=== PATIENT | female | born 1945 | race Caucasian/White ===

== ENCOUNTER → 2017-10-31 11:13 | Outpatient (CLI) | payer MEDICARE, BC, SELFPAY ==
--- NOTE | 2017-10-31 | DI.MG.S_ITS ---
BILATERAL DIGITAL SCREENING MAMMOGRAM 3D/2D WITH CAD: 10/31/2017 CLINICAL: Routine screening. Family history of breast cancer. Comparison is made to exams dated: 10/28/2016 mammogram, 10/27/2015 mammogram, and 10/21/2014 mammogram - [facility]. The tissue of both breasts is heterogeneously dense. This may lower the sensitivity of mammography. Current study was also evaluated with a Computer Aided Detection (CAD) system. There is architectural distortion in the left breast posterior depth lateral region seen on the craniocaudal view only. No other significant masses, calcifications, or other findings are seen in either breast. IMPRESSION: INCOMPLETE: NEEDS ADDITIONAL IMAGING EVALUATION The architectural distortion in the left breast is indeterminate. Additional views with possible ultrasound are recommended. This exam was interpreted at Station ID: [id number]. NOTE: For mammograms, a report in lay terms will be sent to the patient. Approximately 15% of breast malignancies will not be visualized mammographically. In the management of a palpable breast mass, a negative mammogram must not discourage biopsy of a clinically suspicious lesion. Electronically Signed By: Paul johnston/biju:11/02/2017 08:06:50 letter sent: Additional Imaging Needed ACR BI-RADS Category 0: Incomplete 3340F
== END ==
PROVIDERS: Family Provider Internal Medicine; PCP Internal Medicine; Visit Provider Internal Medicine
DX: Z12.31 Encounter for screening mammogram for malignant neoplasm of breast (principal); Z80.3 Family history of malignant neoplasm of breast
CPT/HCPCS: 77063; 77067

== ENCOUNTER → 2017-11-08 13:37 | Outpatient (CLI) | payer MEDICARE, BC, SELFPAY ==
--- NOTE | 2017-11-08 | DI.MG.S_ITS ---
UNILATERAL LEFT DIGITAL DIAGNOSTIC MAMMOGRAM 3D/2D WITH ADDITIONAL VIEWS: 11/08/2017 CLINICAL: Additional evaluation requested from prior study. Comparison is made to exams dated: 10/31/2017 mammogram, 10/28/2016 mammogram, and 10/27/2015 mammogram - [facility]. The tissue of the left breast is heterogeneously dense. This may lower the sensitivity of mammography. The architectural distortion in the left breast posterior depth lateral region seen on the craniocaudal view only is not seen in additional views. No other significant masses or calcifications are seen in the breast. IMPRESSION: BENIGN There is no mammographic evidence of malignancy. A 1 year screening mammogram is recommended. This exam was interpreted at Station ID: [id number]. NOTE: For mammograms, a report in lay terms will be sent to the patient. Approximately 15% of breast malignancies will not be visualized mammographically. In the management of a palpable breast mass, a negative mammogram must not discourage biopsy of a clinically suspicious lesion. Electronically Signed By: Sienna antonio/:11/08/2017 14:20:15 letter sent: Normal Exam ACR BI-RADS Category 2: Benign Finding(s) 3342F
== END ==
PROVIDERS: Family Provider Internal Medicine; PCP Internal Medicine; Visit Provider Internal Medicine
DX: R92.8 Other abnormal and inconclusive findings on diagnostic imaging of breast (principal)
CPT/HCPCS: 77065; G0279

== ENCOUNTER → 2017-12-20 10:08 | Outpatient (CLI) | payer MEDICARE, BC, SELFPAY ==
[2017-12-20 11:49] LABS: Erythrocyte Sedimentation Rate 17 MM/HR (0-20)
[2017-12-20 12:05] LABS: C-Reactive Protein Quant 2.1 mg/dL (<1.0)
== END ==
PROVIDERS: PCP Internal Medicine; Visit Provider Internal Medicine
DX: M35.3 Polymyalgia rheumatica (principal)
CPT/HCPCS: 36415; 85651; 86140

== ENCOUNTER → 2018-02-05 09:51 | Outpatient (CLI) | payer MEDICARE, BC, SELFPAY ==
[2018-02-05 10:18] LABS: Add Manual Diff / Slide Review NO; Basophils Percent Auto 0.7 % (0-2); Eosinophils Percent Auto 0.8 % (2-4); Hematocrit 40.1 % (36-46); Hemoglobin 13.7 g/dL (12.0-16.0); Lymphocytes Percent Auto 23.7 % (25-40); Mean Corpuscular HGB Conc 34.3 % (30-36); Mean Corpuscular Hemoglobin 32.5 PG (26-34); Neutrophils Absolute Auto 4400 /uL (3000-5900); Neutrophils Percent Auto 68.8 % (50-75); Platelet Count 277 X10^3/uL (150-400); Red Blood Cell Count 4.22 X10^6/uL (4.0-5.2); Red Cell Distribution Width 14.7 % (11.6-14.8); White Blood Cell Count 6.3 X10^3/uL (4.5-11.0)
[2018-02-05 11:05] LABS: Erythrocyte Sedimentation Rate 1 MM/HR (0-20)
[2018-02-05 12:16] LABS: Alanine Aminotransferase 27 IU/L (9-52); Albumin 4.6 g/dL (3.5-5.0); Albumin Globulin Ratio 1.8 (1.0-2.8); Alkaline Phosphatase 64 U/L (38-126); Aspartate Aminotransferase 30 IU/L (14-36); BUN Creatinine Ratio 25.7 (6-22); Bilirubin Total 0.6 mg/dL (0.2-1.3); Blood Urea Nitrogen 18 mg/dL (7-17); Calcium 10.1 mg/dL (8.4-10.2); Carbon Dioxide 28 mmol/L (22-32); Chloride 103 mmol/L (98-107); Estimated Glomerular Filt Rate > 60.0 mL/min (>60); Globulin 2.5 g/dL (1.7-4.1); Glucose 93 mg/dL (80-110); HEMOLYSIS < 15 (0-50); Potassium 4.8 mmol/L (3.4-5.1); Sodium 140 mmol/L (137-145); Total Protein 7.1 g/dL (6.3-8.2)
== END ==
PROVIDERS: Family Provider Internal Medicine; PCP Internal Medicine; Visit Provider Internal Medicine
DX: M35.3 Polymyalgia rheumatica (principal); M81.0 Age-related osteoporosis without current pathological fracture
CPT/HCPCS: 36415; 80053; 85025; 85651

== ENCOUNTER → 2018-11-06 09:18 | Outpatient (CLI) | payer MEDICARE, BC, SELFPAY ==
--- NOTE | 2018-11-06 | DI.MG.S_ITS ---
BILATERAL DIGITAL SCREENING MAMMOGRAM 3D/2D WITH CAD: 11/06/2018 CLINICAL: Routine screening. Family history of breast cancer. Comparison is made to exams dated: 10/31/2017 mammogram, 10/28/2016 mammogram, and 10/27/2015 mammogram - [facility]. The tissue of both breasts is heterogeneously dense. This may lower the sensitivity of mammography. Current study was also evaluated with a Computer Aided Detection (CAD) system. No significant masses, calcifications, or other findings are seen in either breast. There has been no significant interval change. IMPRESSION: NEGATIVE There is no mammographic evidence of malignancy. A 1 year screening mammogram is recommended. This exam was interpreted at Station ID: [id number]. NOTE: For mammograms, a report in lay terms will be sent to the patient. Approximately 15% of breast malignancies will not be visualized mammographically. In the management of a palpable breast mass, a negative mammogram must not discourage biopsy of a clinically suspicious lesion. Electronically Signed By: Sienna antonio/biju:11/06/2018 10:20:47 letter sent: Normal Exam ACR BI-RADS Category 1: Negative 3341F
== END ==
PROVIDERS: PCP Internal Medicine; Visit Provider Internal Medicine
DX: Z12.31 Encounter for screening mammogram for malignant neoplasm of breast (principal); Z80.3 Family history of malignant neoplasm of breast
CPT/HCPCS: 77063; 77067

== ENCOUNTER → 2019-01-31 08:37 | Outpatient (CLI) | payer MEDICARE, BC, SELFPAY ==
[2019-01-31 10:02] LABS: Erythrocyte Sedimentation Rate 10 MM/HR (0-20)
== END ==
PROVIDERS: PCP Internal Medicine; Visit Provider Internal Medicine
DX: M35.3 Polymyalgia rheumatica (principal)
CPT/HCPCS: 36415; 85651

== ENCOUNTER → 2019-05-10 09:19 | Outpatient (CLI) | payer MEDICARE, BC, SELFPAY | PROVIDERS: PCP Internal Medicine; Visit Provider Internal Medicine | DX: M85.852 Other specified disorders of bone density and structure, left thigh (principal); Z78.0 Asymptomatic menopausal state; Z82.62 Family history of osteoporosis | CPT/HCPCS: 77080 ==

== ENCOUNTER → 2019-06-25 09:28 | Outpatient (CLI) | payer MEDICARE, BC, SELFPAY ==
[2019-06-25 10:52] LABS: Erythrocyte Sedimentation Rate 14 MM/HR (0-20)
== END ==
PROVIDERS: PCP Internal Medicine; Referring Provider Internal Medicine; Visit Provider Internal Medicine
DX: M81.0 Age-related osteoporosis without current pathological fracture (principal); M35.3 Polymyalgia rheumatica
CPT/HCPCS: 36415; 85651

== ENCOUNTER → 2019-11-08 09:53 | Outpatient (CLI) | payer MEDICARE, BC, SELFPAY ==
--- NOTE | 2019-11-08 | DI.MG.S_ITS ---
BILATERAL DIGITAL SCREENING MAMMOGRAM 3D/2D WITH CAD: 11/08/2019 CLINICAL: Routine screening. Family history of breast cancer. Comparison is made to exams dated: 11/06/2018 mammogram, 10/31/2017 mammogram, and 10/28/2016 mammogram - [facility]. The tissue of both breasts is heterogeneously dense. This may lower the sensitivity of mammography. Current study was also evaluated with a Computer Aided Detection (CAD) system. There is an irregular equal density asymmetry with an indistinct margin in the right breast middle depth central to the nipple seen on the mediolateral oblique view only. There is possible architectural distortion associated with the asymmetry. No other significant masses, calcifications, or other findings are seen in either breast. IMPRESSION: INCOMPLETE: NEEDS ADDITIONAL IMAGING EVALUATION The irregular equal density asymmetry in the right breast is indeterminate. Mediolateral and spot compression views as well as additional views with possible ultrasound are recommended. This exam was interpreted at Station ID: [id number]. NOTE: For mammograms, a report in lay terms will be sent to the patient. Approximately 15% of breast malignancies will not be visualized mammographically. In the management of a palpable breast mass, a negative mammogram must not discourage biopsy of a clinically suspicious lesion. Electronically Signed By: Jong stewart/:11/08/2019 11:51:29 letter sent: Additional Imaging Needed ACR BI-RADS Category 0: Incomplete 3340F
== END ==
PROVIDERS: PCP Internal Medicine; Referring Provider Internal Medicine; Visit Provider Internal Medicine
DX: Z12.31 Encounter for screening mammogram for malignant neoplasm of breast (principal); Z80.3 Family history of malignant neoplasm of breast
CPT/HCPCS: 77063; 77067

== ENCOUNTER → 2019-12-04 09:06 | Outpatient (CLI) | payer MEDICARE, BC, SELFPAY ==
--- NOTE | 2019-12-04 | DI.MG.S_ITS ---
UNILATERAL RIGHT DIGITAL DIAGNOSTIC MAMMOGRAM 3D/2D WITH ADDITIONAL VIEWS: 12/04/2019 CLINICAL: Additional evaluation requested from prior study. Comparison is made to exams dated: 11/08/2019 mammogram, 11/06/2018 mammogram, and 11/08/2017 mammogram - [facility]. The tissue of right breast is heterogeneously dense. This may lower the sensitivity of mammography. The previously seen asymmetry in the right breast is no longer visualized, presumably secondary to superimposed fibroglandular breast tissue on the prior exam. No significant masses, calcifications, or other findings are seen in the breast. IMPRESSION: NEGATIVE There is no mammographic evidence of malignancy. A 1 year screening mammogram is recommended. This exam was interpreted at Station ID: [id number]. NOTE: For mammograms, a report in lay terms will be sent to the patient. Approximately 15% of breast malignancies will not be visualized mammographically. In the management of a palpable breast mass, a negative mammogram must not discourage biopsy of a clinically suspicious lesion. Electronically Signed By: Herminio barroso/biju:12/04/2019 09:52:08 letter sent: Normal Exam ACR BI-RADS Category 1: Negative 3341F
== END ==
PROVIDERS: PCP Internal Medicine; Referring Provider Internal Medicine; Visit Provider Internal Medicine
DX: R92.8 Other abnormal and inconclusive findings on diagnostic imaging of breast (principal)
CPT/HCPCS: 77065; G0279

== ENCOUNTER → 2020-02-18 09:17 | Outpatient (CLI) | payer MEDICARE, BC, SELFPAY ==
[2020-02-18 16:45] LABS: Erythrocyte Sedimentation Rate 13 MM/HR (0-20)
== END ==
PROVIDERS: PCP Internal Medicine; Referring Provider Internal Medicine; Visit Provider Internal Medicine
DX: M35.3 Polymyalgia rheumatica (principal); M81.0 Age-related osteoporosis without current pathological fracture
CPT/HCPCS: 36415; 85651

== ENCOUNTER → 2020-11-10 09:34 | Outpatient (CLI) | payer MEDICARE, BC, SELFPAY ==
--- NOTE | 2020-11-10 | DI.MG.S_ITS ---
BILATERAL DIGITAL SCREENING MAMMOGRAM 3D/2D WITH CAD: 11/10/2020 CLINICAL: Family history of breast cancer. Routine screening. Comparison is made to exams dated: 12/04/2019 mammogram, 11/08/2019 mammogram, 11/06/2018 mammogram, 10/31/2017 mammogram, and 10/28/2016 mammogram - [facility]. The tissue of both breasts is heterogeneously dense. This may lower the sensitivity of mammography. Current study was also evaluated with a Computer Aided Detection (CAD) system. No significant masses, calcifications, or other findings are seen in either breast. There has been no significant interval change. IMPRESSION: NEGATIVE There is no mammographic evidence of malignancy. A 1 year screening mammogram is recommended. This exam was interpreted at Station ID: [id number]. NOTE: For mammograms, a report in lay terms will be sent to the patient. Approximately 15% of breast malignancies will not be visualized mammographically. In the management of a palpable breast mass, a negative mammogram must not discourage biopsy of a clinically suspicious lesion. Electronically Signed By: Maxi vasquez/biju:11/10/2020 11:39:46 letter sent: Normal Exam ACR BI-RADS Category 1: Negative 3341F
== END ==
PROVIDERS: PCP Internal Medicine; Referring Provider Internal Medicine; Visit Provider Internal Medicine
DX: Z12.31 Encounter for screening mammogram for malignant neoplasm of breast (principal); Z80.3 Family history of malignant neoplasm of breast
CPT/HCPCS: 77063; 77067

== ENCOUNTER → 2021-05-11 09:04 | Outpatient (CLI) | payer MEDICARE, BC, SELFPAY | PROVIDERS: PCP Internal Medicine; Referring Provider Internal Medicine; Visit Provider Internal Medicine | DX: M85.88 Other specified disorders of bone density and structure, other site (principal); Z78.0 Asymptomatic menopausal state; Z82.62 Family history of osteoporosis | CPT/HCPCS: 77080 ==

== ENCOUNTER → 2021-05-20 07:05 | Outpatient (CLI) | payer MEDICARE, BC, SELFPAY ==
[2021-05-20 08:52] LABS: Alanine Aminotransferase 21 IU/L (<35); Albumin 4.1 g/dL (3.5-5.0); Albumin Globulin Ratio 1.7 (1.0-2.8); Alkaline Phosphatase 66 U/L (38-126); Aspartate Aminotransferase 34 IU/L (14-36); BUN Creatinine Ratio 32.9 (6-22); Bilirubin Total 0.6 mg/dL (0.2-1.3); Blood Urea Nitrogen 24 mg/dL (7-17); Carbon Dioxide 30 mmol/L (22-32); Chloride 104 mmol/L (98-107); Cholesterol 246 mg/dL (140-199); Estimated Glomerular Filt Rate > 60.0 mL/min (>60); Globulin 2.4 g/dL (1.7-4.1); Glucose 92 mg/dL (80-110); HEMOLYSIS < 15 (0-50); Potassium 4.2 mmol/L (3.4-5.1); Sodium 139 mmol/L (137-145); Total Protein 6.5 g/dL (6.3-8.2); Triglycerides 74 mg/dL (35-150)
[2021-05-20 09:02] LABS: HDL Cholesterol 130 mg/dL (40-60); LDL Cholesterol Calculated 101 mg/dL (<100)
[2021-05-20 15:54] LABS: Hep C Virus Ab w/Reflex Quant NEGATIVE s/c (NEGATIVE)
== END ==
PROVIDERS: PCP Internal Medicine; Referring Provider Internal Medicine; Visit Provider Internal Medicine
DX: E78.5 Hyperlipidemia, unspecified (principal); Z11.59 Encounter for screening for other viral diseases
CPT/HCPCS: 36415; 80053; 80061; 86803

== ENCOUNTER 2021-06-14 11:41 | Emergency (ER) | payer MEDICARE, BC, SELFPAY ==
[2021-06-14 11:45] VITALS: BP 160/78; PULSE 94; RESP 20; TEMP 36.2; O2SAT 97; BMI 20.7
--- NOTE | 2021-06-14 11:52 | DI.RAD.S_ITS ---
PROCEDURE: XR CHEST 1V INDICATIONS: chest pain TECHNIQUE: One view of the chest was acquired. COMPARISON: [facility], , CHEST 2 VIEW, 02/27/2012, 14:36. FINDINGS: Surgical changes and devices: None. Lungs and pleura: Lungs are clear. No pleural effusions or pneumothorax. Mediastinum: Mediastinal contours appear normal. Heart size is mildly enlarged. Bones and chest wall: No suspicious bony lesions. Overlying soft tissues appear unremarkable. IMPRESSION: No acute cardiopulmonary pathology. Dictated by: Eulogio Nunez M.D. on 06/14/2021 at 12:48 Approved by: Eulogio Nunez M.D. on 06/14/2021 at 12:48
[2021-06-14 12:59] LABS: Add Manual Diff / Slide Review NO; Basophils Absolute Auto 100 /uL (0-100); Basophils Percent Auto 1.2 % (0-2); Eosinophils Absolute Auto 100 /uL (0-450); Eosinophils Percent Auto 1.7 % (2-4); Hematocrit 37.2 % (36-46); Hemoglobin 12.9 g/dL (12.0-16.0); Lymphocytes Absolute Auto 1400 /uL (1100-4500); Lymphocytes Percent Auto 28.1 % (25-40); Mean Corpuscular HGB Conc 34.6 % (30-36); Mean Corpuscular Volume 92.4 fL (80-100); Monocytes Absolute Auto 400 /uL (0-900); Monocytes Percent Auto 8.1 % (3-14); Neutrophils Absolute Auto 3100 /uL (1500-7000); Neutrophils Percent Auto 60.9 % (50-75); Platelet Count 221 X10^3/uL (150-400); Red Blood Cell Count 4.03 X10^6/uL (4.0-5.2); Red Cell Distribution Width 13.6 % (11.6-14.8); White Blood Cell Count 5.1 X10^3/uL (4.5-11.0)
[2021-06-14 13:05] LABS: Alanine Aminotransferase 20 IU/L (<35); Albumin 4.5 g/dL (3.5-5.0); Albumin Globulin Ratio 1.7 (1.0-2.8); Alkaline Phosphatase 72 U/L (38-126); Aspartate Aminotransferase 34 IU/L (14-36); BUN Creatinine Ratio 24.1 (6-22); Bilirubin Total 0.6 mg/dL (0.2-1.3); Blood Urea Nitrogen 19 mg/dL (7-17); Carbon Dioxide 27 mmol/L (22-32); Chloride 107 mmol/L (98-107); Creatine Kinase 137 U/L (30-135); Estimated Glomerular Filt Rate > 60.0 mL/min (>60); Globulin 2.7 g/dL (1.7-4.1); Glucose 96 mg/dL (80-110); HEMOLYSIS < 15 (0-50); Lipase 214 U/L (23-300); Potassium 3.6 mmol/L (3.4-5.1); Sodium 141 mmol/L (137-145); Total Protein 7.2 g/dL (6.3-8.2)
[2021-06-14 13:16] LABS: Troponin I < 0.012 ng/mL (0.01-0.034)
[2021-06-14 13:20] LABS: Creatine Kinase MB 2.73 ng/mL (<2.37)
[2021-06-14 15:17] VITALS: PULSE 75; RESP 22; O2SAT 97
[2021-06-14 15:18] VITALS: BP 177/90; PULSE 79; RESP 19; O2SAT 97
[2021-06-14 15:30] VITALS: BP 144/69; PULSE 62; RESP 26; O2SAT 96
[2021-06-14 15:56] VITALS: BP 147/71; PULSE 65; O2SAT 84
--- NOTE | 2021-06-14 15:58 | ED_ITS ---
HPI - Chest Pain General Chief Complaint: Chest Pain Stated Complaint: Chest pains Time Seen by Provider: 06/14/21 15:58 Source: patient Mode of arrival: Ambulatory Limitations: no limitations History of Present Illness HPI narrative: Patient is a 76-year-old female who presents with chest discomfort. She has had intermittent chest discomfort is ongoing for past couple of weeks. However she says she only notices at night. Throughout the days she is able to do everything that she needs. She denies any shortness of breath nausea or vomiting. She has no palpitations. She thinks it is related to stress. She is here at the request of her primary care physician who would like more of a work up. Related Data Home Medications Medication Instructions Recorded Confirmed furosemide 20 mg tablet 20 mg PO QDAY #0 08/15/17 Allergies Allergy/AdvReac Type Severity Reaction Status Date / Time No Known Drug Allergies Allergy Verified 06/14/21 11:52 Review of Systems Review of Systems Narrative: GENERAL: Denies chills, fatigue, malaise, fever, sweats, travel HEENT: Denies sinus pain, ear pain, sore throat, difficulty swallowing, neck pain RESPIRATORY: Denies dyspnea, cough, wheezing, hemoptysis, sputum. CARDIOVASCULAR: See HPI GASTROINTESTINAL: Denies nausea, vomiting, abdominal pain, diarrhea, constipatio n, melena. : Denies dysuria, frequency, incontinence, hematuria, urinary retention, flank pain. MUSCULOSKELETAL: Denies weakness, joint pain, or bony pain SKIN: No rash, no erythema, no pruritus NEUROLOGIC: Denies weakness, dizziness, headache, numbness, change in speech, confusion PSYCHIATRIC: No concerning psychosocial issues. 12 point review of systems is negative except for those stated above and HPI Patient History Social History Smoking Status: Never smoker Smoking Status: Never smoker Substance Use Type: does not use Exam Initial Vital Signs Initial Vital Signs: Vital Signs Temperature 97.1 F L 06/14/21 11:45 Pulse Rate 94 H 06/14/21 11:45 Respiratory Rate 20 06/14/21 11:45 Blood Pressure 160/78 H 06/14/21 11:45 Pulse Oximetry 97 06/14/21 11:45 GENERAL: Alert 76-year-old female slightly anxious slightly anxious and in no acute distress. HEENT: Head atraumatic,EOMI, pupils reactive, face symmetric, moist mucous membranes CARDIOVASCULAR: Regular rate and rhythm without murmurs, rubs or gallops. RESPIRATORY: Breath sounds equal bilaterally, no wheezes rales or rhonchi. ABDOMEN: Soft, nontender. Normoactive bowel sounds all 4 quadrants. No guarding or rebound. EXTREMITIES: Normal range of motion, no clubbing or edema. Neurovascularly intact NEUROLOGICAL: Alert and oriented x4.Normal gait and speech. SKIN: Warm, dry, no laceration, no petechiae, no rashes or lesions. Course Orders Ordered: ED Orders 06/14/21 11:52 XR chest 1V Stat EKG-12 Lead Stat 06/14/21 12:20 Complete Blood Count AUTO DIFF Stat Comprehensive Metabolic Panel Stat Lipase Stat Magnesium Stat Troponin & CK Cardiac Panel Stat 06/14/21 15:20 Trop I [Troponin I] Stat 06/14/21 15:26 EKG-12 Lead Stat Vital Signs Vital signs: Vital Signs - 8 hr 06/14/21 15:17 06/14/21 15:18 06/14/21 15:30 Pulse Rate 75 79 62 Respiratory Rate 22 19 26 H Blood Pressure 177/90 H 144/69 H Pulse Oximetry 97 97 96 06/14/21 15:56 06/14/21 16:00 Pulse Rate 65 69 Respiratory Rate 44 H Blood Pressure 147/71 H Pulse Oximetry 84 L 79 L MDM - Chest Pain Lab Data Result diagrams: 06/14/21 12:20 06/14/21 12:20 Labs: Lab Results 06/14/21 06/14/21 06/14/21 Range/Units 12:20 12:20 15:20 WBC 5.1 (4.5-11.0) X10^3/uL RBC 4.03 (4.0-5.2) X10^6/uL Hgb 12.9 (12.0-16.0) g/dL Hct 37.2 (36-46) % MCV 92.4 (80-100) fL MCH 32.0 (26-34) PG MCHC 34.6 (30-36) % RDW 13.6 (11.6-14.8) % Plt Count 221 (150-400) X10^3/uL Neut % (Auto) 60.9 (50-75) % Lymph % (Auto) 28.1 (25-40) % Bacon % (Auto) 8.1 (3-14) % Eos % (Auto) 1.7 L (2-4) % Baso % (Auto) 1.2 (0-2) % Neut # (Auto) 3100 (8227-4657) /uL Lymph # (Auto) 1400 (6590-5884) /uL Bacon # (Auto) 400 (0-900) /uL Eos # (Auto) 100 (0-450) /uL Baso # (Auto) 100 (0-100) /uL Sodium 141 (137-145) mmol/L Potassium 3.6 (3.4-5.1) mmol/L Chloride 107 (98-107) mmol/L Carbon Dioxide 27 (22-32) mmol/L BUN 19 H (7-17) mg/dL Creatinine 0.79 (0.52-1.04) mg/dL Estimated GFR > 60.0 (>60) mL/min BUN/Creatinine Ratio 24.1 H (6-22) Glucose 96 (80-110) mg/dL Calcium 10.0 (8.4-10.2) mg/dL Magnesium 2.0 (1.6-2.3) mg/dL Total Bilirubin 0.6 (0.2-1.3) mg/dL AST 34 (14-36) IU/L ALT 20 (<35) IU/L Alkaline Phosphatase 72 (38-126) U/L Total Creatine Kinase 137 H (30-135) U/L CK-MB (CK-2) 2.73 H (<2.37) ng/mL CK-MB (CK-2) Rel Index 2.0 (1.5-5.0) % Troponin I < 0.012 0.020 (0.01-0.034) ng/mL Total Protein 7.2 (6.3-8.2) g/dL Albumin 4.5 (3.5-5.0) g/dL Globulin 2.7 (1.7-4.1) g/dL Albumin/Globulin Ratio 1.7 (1.0-2.8) Lipase 214 (23-300) U/L Imaging Data Chest x-ray: Radiologist's Impression: PROCEDURE:? XR CHEST 1V ? INDICATIONS:? chest pain ? TECHNIQUE:? One view of the chest was acquired.? ? COMPARISON:? [facility], , CHEST 2 VIEW, 02/27/2012, 14:36. ? FINDINGS:? ? Surgical changes and devices:? None.? ? Lungs and pleura:? Lungs are clear.? No pleural effusions or pneumothorax.? ? Mediastinum:? Mediastinal contours appear normal.? Heart size is mildly enlarged.? ? Bones and chest wall:? No suspicious bony lesions.? Overlying soft tissues appear unremarkable.? ? IMPRESSION:? No acute cardiopulmonary pathology. ? ? Dictated by: Eulogio Nunez M.D. on 06/14/2021 at 12:48? ECG Data Interpretation: Normal sinus rhythm rate 71 VA interval 170 QRS [address] changes no T- wave inversion Normal sinus rhythm rate 60 p.r. interval [address] changes MDM Narrative Medical decision making narrative: The patient overall is quite anxious she is ready to go home. She was sent here by her primary care provider for rule out. Her chest pain does not sound cardiac in nature but still may need outpatient stress test. She has a negative workup here in the emergency department. She only has symptoms when she lays down at night. At this time I feel it is appropriate for her to follow up with her Discharge Plan Departure Patient Disposition: Home Clinical Impression: Atypical chest pain Instructions: DI for Atypical Chest Pain Activity Restrictions/Additional Instructions: *You have been diagnosed with atypical chest pain *What to do: At this time rib workup is negative. He when your primary may decide that you need an outpatient stress test however not indicated to stay in hospital at this time. *Continue to take medications as directed *Follow up with your primary care provider in 2-3 days or call [phone] *Return to ER if you should have increasing chest pain change in chest pain, palpitation shortness of breath or any new, worsening or concerning symptoms Prescriptions: No Action furosemide 20 MG tablet 20 mg PO QDAY Qty: 0 0RF Referrals: Usha Wright MD [Primary Care Provider] -
[2021-06-14 16:00] VITALS: PULSE 69; RESP 44; O2SAT 79
== END 2021-06-14 16:29 | disposition home or self-care (01) ==
PROVIDERS: Emergency Provider Emergency Medicine; PCP Internal Medicine
DX: R07.89 Other chest pain (principal)
CPT/HCPCS: 36415; 71045; 80053; 82550; 82553; 83690; 83735; 84484; 85025; 93005; 93010; 99284

== ENCOUNTER → 2021-11-16 08:26 | Outpatient (CLI) | payer MEDICARE, BC, SELFPAY ==
--- NOTE | 2021-11-16 | DI.MG.S_ITS ---
BILATERAL DIGITAL SCREENING MAMMOGRAM 3D/2D WITH CAD: 11/16/2021 CLINICAL: Routine screening. Family history of breast cancer. Comparison is made to exams dated: 11/10/2020 mammogram, 11/08/2019 mammogram, 11/06/2018 mammogram, 10/31/2017 mammogram, and 10/28/2016 mammogram - [facility]. The tissue of both breasts is heterogeneously dense. This may lower the sensitivity of mammography. Current study was also evaluated with a Computer Aided Detection (CAD) system. No significant masses, calcifications, or other findings are seen in either breast. There has been no significant interval change. IMPRESSION: NEGATIVE There is no mammographic evidence of malignancy. A 1 year screening mammogram is recommended. Based on the Tyrer Cuzick model (a risk assessment model) the patient's lifetime risk is 4.9% and her 10 year risk is 0.0%. According to the ACR, ACS, and NCCN guidelines, an annual breast MRI exam along with mammogram is recommended if the patient's lifetime risk is 20% or greater. This exam was interpreted at Station ID: [id number]. NOTE: For mammograms, a report in lay terms will be sent to the patient. Approximately 15% of breast malignancies will not be visualized mammographically. In the management of a palpable breast mass, a negative mammogram must not discourage biopsy of a clinically suspicious lesion. Electronically Signed By: Maxi vasquez/biju:11/16/2021 09:10:58 letter sent: Normal Exam ACR BI-RADS Category 1: Negative 3341F
== END ==
PROVIDERS: PCP Internal Medicine; Referring Provider Internal Medicine; Visit Provider Internal Medicine
DX: Z12.31 Encounter for screening mammogram for malignant neoplasm of breast (principal); Z80.3 Family history of malignant neoplasm of breast
CPT/HCPCS: 77063; 77067

== ENCOUNTER → 2022-03-10 07:36 | Outpatient (CLI) | payer MEDICARE, BC, SELFPAY ==
[2022-03-10 10:57] LABS: Alanine Aminotransferase 23 IU/L (<35); Albumin 4.3 g/dL (3.5-5.0); Albumin Globulin Ratio 1.8 (1.0-2.8); Alkaline Phosphatase 74 U/L (38-126); Aspartate Aminotransferase 31 IU/L (14-36); BUN Creatinine Ratio 27.5 (6-22); Bilirubin Total 0.7 mg/dL (0.2-1.3); Blood Urea Nitrogen 19 mg/dL (7-17); Calcium 9.7 mg/dL (8.4-10.2); Carbon Dioxide 26 mmol/L (22-32); Chloride 103 mmol/L (98-107); Cholesterol 169 mg/dL (140-199); Estimated Glomerular Filt Rate > 60 mL/min (>60); Globulin 2.4 g/dL (1.7-4.1); Glucose 76 mg/dL (80-110); HDL Cholesterol 107 mg/dL (40-60); HEMOLYSIS < 15 (0-50); LDL Cholesterol Calculated 51 mg/dL (<100); Potassium 3.8 mmol/L (3.4-5.1); Sodium 140 mmol/L (137-145); Total Protein 6.7 g/dL (6.3-8.2); Triglycerides 56 mg/dL (35-150)
[2022-03-10 11:17] LABS: Vitamin D 25 Hydroxy (D3) 67.3 ng/mL (30.0-100.0)
== END ==
PROVIDERS: PCP Family Medicine; Referring Provider Family Medicine; Visit Provider Family Medicine
DX: E78.9 Disorder of lipoprotein metabolism, unspecified (principal); M85.89 Other specified disorders of bone density and structure, multiple sites; E61.2 Magnesium deficiency; R53.83 Other fatigue; E78.00 Pure hypercholesterolemia, unspecified; E55.9 Vitamin D deficiency, unspecified
CPT/HCPCS: 36415; 80053; 80061; 82306

== ENCOUNTER → 2022-11-22 07:14 | Outpatient (CLI) | payer MEDICARE, BC, SELFPAY ==
--- NOTE | 2022-11-22 | DI.MG.S_ITS ---
BILATERAL DIGITAL SCREENING MAMMOGRAM 3D/2D WITH CAD: 11/22/2022 CLINICAL: Routine screening. Family history of breast cancer. Comparison is made to exams dated: 11/16/2021 mammogram, 11/10/2020 mammogram, 11/08/2019 mammogram, and 11/06/2018 mammogram - [facility]. Both breasts are heterogeneously dense, which may obscure small masses (category c / 51-75% glandular tissue). Current study was also evaluated with a Computer Aided Detection (CAD) system. No significant masses, calcifications, or other findings are seen in either breast. There has been no significant interval change. IMPRESSION: NEGATIVE There is no mammographic evidence of malignancy. A 1 year screening mammogram is recommended. Based on the Tyrer Cuzick model (a risk assessment model) the patient's lifetime risk is 4.4% and her 10 year risk is 0.0%. According to the ACR, ACS, and NCCN guidelines, an annual breast MRI exam along with mammogram is recommended if the patient's lifetime risk is 20% or greater. This exam was interpreted at Station ID: [id number]. NOTE: For mammograms, a report in lay terms will be sent to the patient. Approximately 15% of breast malignancies will not be visualized mammographically. In the management of a palpable breast mass, a negative mammogram must not discourage biopsy of a clinically suspicious lesion. Electronically Signed By: Maxi vasquez/biju:11/22/2022 10:08:32 letter sent: Normal Exam ACR BI-RADS Category 1: Negative 3341F
== END ==
PROVIDERS: PCP Family Medicine; Referring Provider Family Medicine; Visit Provider Family Medicine
DX: Z12.31 Encounter for screening mammogram for malignant neoplasm of breast (principal); Z80.3 Family history of malignant neoplasm of breast
CPT/HCPCS: 77063; 77067

== ENCOUNTER → 2023-02-17 06:32 | Outpatient (CLI) | payer MEDICARE, BC, SELFPAY ==
[2023-02-17 08:01] LABS: Hematocrit 37.7 % (36-46); Hemoglobin 12.9 g/dL (12.0-16.0); Mean Corpuscular HGB Conc 34.2 % (30-36); Mean Corpuscular Hemoglobin 31.6 PG (26-34); Mean Corpuscular Volume 92.4 fL (80-100); Platelet Count 228 X10^3/uL (150-400); Red Blood Cell Count 4.09 X10^6/uL (4.0-5.2); Red Cell Distribution Width 13.8 % (11.6-14.8); White Blood Cell Count 5.5 X10^3/uL (4.5-11.0)
[2023-02-17 08:23] LABS: BUN Creatinine Ratio 37.5 (6-22); Blood Urea Nitrogen 24 mg/dL (7-17); Calcium 10.2 mg/dL (8.4-10.2); Carbon Dioxide 27 mmol/L (22-32); Chloride 100 mmol/L (98-107); Cholesterol 175 mg/dL (140-199); Estimated Glomerular Filt Rate > 60 mL/min (>60); Glucose 84 mg/dL (80-110); HDL Cholesterol 107 mg/dL (40-60); HEMOLYSIS < 15 (0-50); LDL Cholesterol Calculated 56 mg/dL (<100); Potassium 4.1 mmol/L (3.4-5.1); Sodium 136 mmol/L (137-145); Triglycerides 58 mg/dL (35-150)
== END ==
PROVIDERS: PCP Family Medicine; Referring Provider Family Medicine; Visit Provider Family Medicine
DX: M35.3 Polymyalgia rheumatica (principal); E78.5 Hyperlipidemia, unspecified; K57.90 Diverticulosis of intestine, part unspecified, without perforation or abscess without bleeding
CPT/HCPCS: 36415; 80048; 80061; 85027

== ENCOUNTER → 2023-03-30 | Outpatient (CLI) | payer MEDICARE, BC, SELFPAY ==
--- NOTE | 2023-03-30 07:19 | DI.RAD.S_ITS ---
Bone Density Report Name: CB HEWITT Age: 78 Sex: Female Ethnicity: White Date of : 1945 Indication: osteopenia; monitoring treatment; Referring Provider: ROGER CHAMORRO Study: Bone densitometry was performed. Exam Date: March 30, 2023 Accession number: [id number] Bone Density: Region BMD T-score Z-score Classification AP Spine(L1-L4) 0.893 -1.4 1.2 Osteopenia Femoral Neck (Left) 0.605 -2.2 0.0 Osteopenia Total Hip (Left) 0.730 -1.7 0.2 Osteopenia Femoral Neck (Right) 0.600 -2.2 0.0 Osteopenia Total Hip (Right) 0.712 -1.9 0.1 Osteopenia Total Hip Mean 0.721 -1.8 0.2 Osteopenia World Health Organization criteria for BMD impression classify patients as: Normal (T-score at or above -1.0), Osteopenia (T-score between -1.0 and -2.5), or Osteoporosis (T-score at or below -2.5). 10-year Fracture Risk: FRAX not reported because: Treated for osteoporosis Previous Exams: -- Region Exam Age BMD T-score BMD Change BMD Change Date g/cm2 vs Baseline vs Previous -- AP Spine (L1-L4) 03/30/2023 78 0.893 -1.4 0.099 (12.5%)# 0.081 (10.0%)# 05/11/2021 76 0.812 -2.1 0.018 (2.3%) -0.020 (-2.4%) 05/10/2019 74 0.832 -2.0 0.039 (4.9%)* 0.008 (0.9%) 04/25/2017 72 0.825 -2.0 0.031 (3.9%)* 0.031 (3.9%)* 03/09/2015 70 0.794 -2.3 Total Hip(Left) 03/30/2023 78 0.730 -1.7 0.018 (2.5%)# 0.037 (5.4%)# 05/11/2021 76 0.693 -2.0 -0.020 (-2.8%) -0.024 (-3.3%) 05/10/2019 74 0.716 -1.8 0.004 (0.5%) -0.006 (-0.8%) 04/25/2017 72 0.722 -1.8 0.009 (1.3%) 0.009 (1.3%) 03/09/2015 70 0.713 -1.9 Total Hip(Right) 03/30/2023 78 0.712 -1.9 0.007 (1.0%)# 0.043 (6.4%)# 05/11/2021 76 0.669 -2.2 -0.036 (-5.0%)* -0.024 (-3.4%) 05/10/2019 74 0.693 -2.0 -0.012 (-1.7%) -0.014 (-2.0%) 04/25/2017 72 0.707 -1.9 0.002 (0.3%) 0.002 (0.3%) 03/09/2015 70 0.705 -1.9 -- *Denotes significance at 95% confidence level, LSC for AP Spine = 0.022 g/cm2, LSC for Total Hip = 0.027 g/cm2 # Denotes dissimilar scan types or analysis methods Impression: The patient has low bone mass, based on the Left Femoral Neck T-score. No significant bone loss was observed. Discussion: PATIENT UNDER TREATMENT WITH NO SIGNIFICANT BMD LOSS SINCE LAST EXAM. In an untreated patient, BMD typically declines with age. A lack of decline or gain is usually a sign that treatment is efficacious and fracture risk is reduced. It is important to ask patients whether they are taking their medications and to encourage continued and appropriate compliance with their osteoporosis therapies to reduce fracture risk. It is also important to review their risk factors and encourage appropriate calcium and vitamin D intakes, exercise, fall prevention and other lifestyle measures. Follow-Up: Consider a repeat BMD and Vertebral Fracture Assessment (VFA) exam in 2 years or sooner if medically necessary, to reassess this patient's status. Reported by: CHELI CUNHA M.D. on 03/30/2023 8:40:00 AM.
== END ==
PROVIDERS: PCP Family Medicine; Referring Provider Family Medicine; Visit Provider Family Medicine
DX: M81.0 Age-related osteoporosis without current pathological fracture; Z78.0 Asymptomatic menopausal state; Z79.83 Long term (current) use of bisphosphonates
CPT/HCPCS: 77080

== ENCOUNTER → 2023-11-24 07:51 | Outpatient (CLI) | payer MEDICARE, BC, SELFPAY ==
--- NOTE | 2023-11-24 07:52 | DI.MG.S_ITS ---
BILATERAL DIGITAL SCREENING MAMMOGRAM 3D/2D WITH CAD: 11/24/2023 CLINICAL: Routine screening. Family history of breast cancer. Comparison is made to exams dated: 11/22/2022 mammogram, 11/16/2021 mammogram, 11/10/2020 mammogram, and 12/04/2019 mammogram - [facility]. Both breasts are heterogeneously dense, which may obscure small masses (category c / 51-75% glandular tissue). Current study was also evaluated with a Computer Aided Detection (CAD) system. No significant masses, calcifications, or other findings are seen in either breast. There has been no significant interval change. IMPRESSION: NEGATIVE There is no mammographic evidence of malignancy. A 1 year screening mammogram is recommended. Based on the Tyrer Cuzick model (a risk assessment model) the patient's lifetime risk is 4.0% and her 10 year risk is 0.0%. According to the ACR, ACS, and NCCN guidelines, an annual breast MRI exam along with mammogram is recommended if the patient's lifetime risk is 20% or greater. This exam was interpreted at Station ID: [id number]. NOTE: For mammograms, a report in lay terms will be sent to the patient. Approximately 15% of breast malignancies will not be visualized mammographically. In the management of a palpable breast mass, a negative mammogram must not discourage biopsy of a clinically suspicious lesion. Electronically Signed By: Maxi vasquez/biju:11/24/2023 11:51:22 letter sent: Normal Exam ACR BI-RADS Category 1: Negative 3341F
== END ==
PROVIDERS: PCP Family Medicine; Referring Provider Family Medicine; Visit Provider Family Medicine
DX: Z12.31 Encounter for screening mammogram for malignant neoplasm of breast (principal); Z80.3 Family history of malignant neoplasm of breast; R92.333 Mammographic heterogeneous density, bilateral breasts
CPT/HCPCS: 77063; 77067

== ENCOUNTER → 2024-05-14 11:56 | Outpatient (CLI) | payer MEDICARE, BC, SELFPAY ==
--- NOTE | 2024-05-14 11:58 | DI.RAD.S_ITS ---
PROCEDURE: XR DEXA AXIAL SKELETON INDICATIONS: bone density screening COMPARISON: [facility], CR, XR DEXA AXIAL SKELETON, 05/10/2019, 9:44. [facility], CR, XR DEXA AXIAL SKELETON, 05/11/2021, 9:38. [facility], CR, XR DEXA AXIAL SKELETON, 03/30/2023, 8:34. FINDINGS: Lumbar Spine: Bone mineral density 0.899 g/cm2, T score -1.3, osteopenia. Left Hip: Bone mineral density 0.726 g/cm2, T score -1.8, osteopenia. Left Femoral Neck: Bone mineral density 0.608 g/cm2, T score -2.2, osteoporosis. Fracture Risk Calculation (when applicable): 10-year fracture risk of a major osteoporotic fracture 21% percent and of a hip fracture 7.7% percent. (T score greater or equal to -1.0 to: NORMAL) (T score from -1.1 to -2.4: OSTEOPENIA) (T score less than or equal to -2.5: OSTEOPOROSIS) IMPRESSION: Osteoporosis. Follow-up guidelines as follows: Osteoporosis: Consider a repeat DEXA and Vertebral Fracture Assessment (VFA) exam in 2 years or sooner if medically necessary, to reassess this patient's status. Osteopenia: Consider a repeat DEXA in 2-3 years to reassess this patient's status, or if there is a new clinical indication. Normal: Consider a repeat DEXA in 5 years or sooner, or if there is a new clinical indication. All treatment decisions require clinical judgment and consideration of individual patient factors, including patient preferences, comorbidities, previous drug use, risk factors not captured in the FRAX model (e.g., frailty, falls, vitamin D deficiency, increased bone turnover, interval significant decline in bone density ) and possible under- or over-estimation of fracture risk by FRAX. In addition, the NOF Guide recommends that FDA-approved medical therapies be considered in postmenopausal women and men age >= 50 years with a: * Hip or vertebral (clinical or morphometric) fracture * T-score of <=-2.5 at the spine or hip * Ten-year fracture probability by FRAX of >= 3% for hip fracture or >=20% for major osteoporotic fracture. People with diagnosed cases of osteoporosis or at high risk for fracture should have regular bone mineral density tests. For patients eligible for Medicare, routine testing is allowed once every 2 years. The testing frequency can be increased to one year for patients who have rapidly progressing disease, those who are receiving or discontinuing medical therapy to restore bone mass, or have additional risk factors. Dictated by: Rose Downs MD, PhD on 05/14/2024 at 13:27 Approved by: Rose Downs MD, PhD on 05/14/2024 at 13:30
== END ==
LOC: RAD 11:57
PROVIDERS: Family Provider Family Medicine; PCP Family Medicine; Referring Provider Family Medicine; Visit Provider Family Medicine
DX: M81.0 Age-related osteoporosis without current pathological fracture (principal); R29.898 Other symptoms and signs involving the musculoskeletal system
CPT/HCPCS: 77080

== ENCOUNTER 2024-05-23 09:45 | Outpatient (RCR) | payer MEDICARE, BC, SELFPAY ==
--- NOTE | 2024-03-26 16:44 | PT.OPPOC ---
Physical, Occupational & Speech Therapy At [facility] Current Diagnoses Cervicalgia (03/26/24) Dorsalgia, unspecified (03/26/24) Other specified disorders of bone density and structure, multiple sites (03/26/24) Visit Care Team Role Provider Type Hannah Alegre DO Attending Provider Physician Family Provider Primary Care Provider Referring Provider Specialty: Medical Address: [address] [place] [address], [address], [place], [address] Email: [email or web address] Plan Of Care PT-OP-B Current Condition Start: 03/18/24 11:02 Freq: Status: Active Protocol: Document 03/26/24 16:44 SAK (Rec: 03/26/24 17:08 [facility] [id number]) Current Condition History of Current Condition Onset Date 2 years Current Complaints spinal pain, weakness History of Current Condition Patient reports pain in her neck, thoracic, and lumbar spines with concern about worsening due to 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 He uses a wheelchair and has poles to assist with transfers . As he needs more assistance she is worried about hurting herself. States she feels she needs to get stronger and learn how to lift and assist appropriately. Reports her current exercise consists of walking, doing stairs and some UE weights. Prior Treatments and Tests Dexa shows osteopenia Treatment Goals Patient/Caregiver Goals Improve strength, learn techniques to protect her spine while caring for her Prior Functional Status Baseline Function- ADL's Independent Baseline Function- Mobility Independent Baseline Function- Gait indep Current Functional Impairments (Reported) Functional Limitations- ADL's painful Functional Limitations- Work/School painful caregiving for her . PT-OP-T Assessment and Plan Start: 03/18/24 11:02 Freq: Status: Active Protocol: Document 03/26/24 16:44 SAK (Rec: 03/26/24 17:08 SAK [id number]) Physical Therapy Assessment Rehab Potential Rehabilitation Potential Good Evaluation Complexity Number of Personal Factors/Comorbidities 1-2 Number of Body Systems Impaired 3 Clinical Presentation at Evaluation Evolving Other Concerns Barriers to Rehabilitation osteopenia Goals Four Impairment poor knowledge of body mechanics Short Term Goal (STG) Patient to be instructed in proper body mechanics for spinal protection including techniques for safely assisting her with transfers STG Duration 04/25/24 District Associate Judge Goal (LTG) Patient will demonstrate good understanding of proper body mechanics and will be able to verbalize and demonstrate to PT without cues LTG Duration 05/26/24 Three Impairment lacking HEP for core strengthening and presents with postural dysfunction Short Term Goal (STG) Patient to be instructed in HEP for purposes of core strengthening and postural correction STG Duration 04/25/24 Nursing Home Goal (LTG) Patient will be independent and compliant with HEP and demonstrate good postural awareness and correction exercises and stragegies LTG Duration 05/26/24 Two Impairment Oswestry disability index score 26% Nursing Home Goal (LTG) Improve score to no greater than 13% LTG Duration 05/26/24 One Impairment neck disability index score 24 % District Associate Judge Goal (LTG) Improve score to no greater than 12% LTG Duration 05/26/24 Assessment Summary Assessment Patient presents to PT with function-limiting spinal pain, weakness in spinal and core musculature, and knowledge deficit regarding body mechanics and spinal protection. 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 Demonstration of her current technique for assisting unsafe for her spine and initial education initiated today. Feel she would benefit from PT for strengthening of her core, body mechanics education and training. Modalities and manual therapy PRN pain. POC was discussed and patient was in agreement. Physical Therapy Plan Frequency and Duration Frequency of Treatment 2x/Week Duration of treatment (weeks) 8 Plan of Care Start Date 03/26/24 Plan of Care End Date 05/26/23 Therapeutic Interventions Therapeutic Interventions Home Exercise Program,Manual Therapy,Neuromuscular Re- education,Patient/Caregiver Education,Self-Care/Home Management,Soft Tissue Mobilization,Taping, Therapeutic Activities, Therapeutic Exercises Modalities Cold Pack/Ice Massage,Electric Stimulation,Hot Packs, Ultrasound Next Visit Focus/Plan Next Note Type Treatment Note Next Visit Plan Review HEP, body mechanics handouts. Progress ther ex as tolerated with emphasis on core stabilization and strengthening, continue body mechanics education. Provide updated handouts as needed. Plan of Care Dates Plan of Care Start Date 03/26/24 Plan of Care End Date 05/26/23 Electronically Signed by: Marli Ayon, PT 03/27/24 [id number] If you are in agreement with this Plan of Care, please return a signed and dated copy. I have reviewed this Plan of Care and certify that the skilled therapy services above are required to meet the patient?s needs. Physician Signature Date Printed Name and Credentials Clinical Instructor Signature Printed Name and Credentials
--- NOTE | 2024-03-26 16:44 | PT.OIE ---
Current Diagnoses Cervicalgia (03/26/24) Dorsalgia, unspecified (03/26/24) Other specified disorders of bone density and structure, multiple sites (03/26/24) Past Medical History (Last Updated 03/08/24 @ 08:55 by Hannah Alegre DO) Chicken pox Colon polyps (~2014) Diverticular disease (~2001) Hearing loss Measles Mumps Osteopenia (~2010) Polymyalgia rheumatica (~2011) Vision disorder Past Surgical History (Last Updated 08/11/21 @ 20:33 by Virginia Olson) Anesthesia History of rhinoplasty (~1989) Visit Care Team Role Provider Type Hannah Alegre DO Attending Provider Physician Family Provider Primary Care Provider Referring Provider Specialty: Medical Address: [address] [place] [address], [address], [place], [address] Email: [email or web address] Physical Therapy Initial Evaluation PT-OP-A Visit Information Start: 03/18/24 11:02 Freq: Status: Active Protocol: Document 03/26/24 16:44 SAK (Rec: 03/26/24 17:08 SAK [id number]) Out-Patient Physical Therapy Visit Information Visit Information Visit Type Initial Evaluation Visit Start Time 08:15 Visit Stop Time 09:01 Visit Number 1 Evaluation Information Evaluation Date 03/26/24 Precautions Precautions Osteopenia (~2010) Diverticular disease (~2001) Polymyalgia rheumatica (~2011) Hearing loss Vision disorder Mumps Measles Chicken pox Colon polyps (~2014) PT-OP-B Current Condition Start: 03/18/24 11:02 Freq: Status: Active Protocol: Document 03/26/24 16:44 SAK (Rec: 03/26/24 17:08 SAK [id number]) Current Condition History of Current Condition Onset Date 2 years Current Complaints spinal pain, weakness History of Current Condition Patient reports pain in her neck, thoracic, and lumbar spines with concern about worsening due to 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 He uses a wheelchair and has poles to assist with transfers . As he needs more assistance she is worried about hurting herself. States she feels she needs to get stronger and learn how to lift and assist appropriately. Reports her current exercise consists of walking, doing stairs and some UE weights. Prior Treatments and Tests Dexa shows osteopenia Treatment Goals Patient/Caregiver Goals Improve strength, learn techniques to protect her spine while caring for her Prior Functional Status Baseline Function- ADL's Independent Baseline Function- Mobility Independent Baseline Function- Gait indep Current Functional Impairments (Reported) Functional Limitations- ADL's painful Functional Limitations- Work/School painful caregiving for her . PT-OP-C Subjective Start: 03/18/24 11:02 Freq: Status: Active Protocol: Document 03/26/24 16:44 [facility] (Rec: 03/26/24 17:08 [facility] [id number]) Patient Questionnaires Neck Disability Index NDI Score 24 Oswestry Low Back Index Oswestry Score 26 OP-PT Pain Assessment Pain Assessment Grid Paper Pain Assessment Grid Completed Yes Location thoracic and lumbar spine Pain Location Details central and silke, no radiculopathy Intensity 6 c/s Pain Location Details center and left Intensity 8 Comments Pain Comments c/s pain ranges 3-8/10 lumbar ranges 2-6/10 PT-OP-G Mobility & Gait Start: 03/18/24 11:02 Freq: Status: Active Protocol: Document 03/26/24 16:44 [facility] (Rec: 03/27/24 09:58 [facility] [id number]) OP Gait Assessment Gait Gait Assistance Required: Independent Assistive Devices Assistive Device None Gait Deviations General Gait Pattern Within Normal Limits PT-OP-H Neuro Start: 03/18/24 11:02 Freq: Status: Active Protocol: Document 03/26/24 16:44 SAK (Rec: 03/27/24 09:57 [facility] [id number]) Sensation Evaluation Gross Sensation Gross Sensation WNL PT-OP-J Posture/Palpation/Skin Start: 03/18/24 11:02 Freq: Status: Active Protocol: Document 03/26/24 16:44 [facility] (Rec: 03/27/24 09:56 [facility] [id number]) Posture Evaluation Position Standing Head/C-Spine Posture Forward Head T-Spine Posture Increased Kyphosis L-Spine Posture Increased Lordosis Shoulder Posture (L) Rounded,(R) Rounded Arm Posture (L) Internally Rotated,(R) Internally Rotated Pelvis Posture Anteriorly Tilted PT-OP-K Range of Motion Start: 03/18/24 11:02 Freq: Status: Active Protocol: Document 03/26/24 16:44 [facility] (Rec: 03/27/24 09:56 [facility] [id number]) Cervical Spine Range of Motion Cervical Spine Active Testing Position Sitting ROM Limitations Soft Tissue Tightness,Bony Restriction Comments mod decrease all motions, reports stiffness Lumbar Spine Range of Motion Lumbar Spine Active ROM Limitations Soft Tissue Tightness,Bony Restriction Comments mod decrease all motions, reports stiffness Shoulder Goniometric Range of Motion Shoulder silke Shoulder ROM WFL Yes Hip Goniometric Range of Motion Hip silke Hip ROM WFL No Comments mod decrease all motions, stiffness reported PT-OP-M Strength Start: 03/18/24 11:02 Freq: Status: Active Protocol: Document 03/26/24 16:44 [facility] (Rec: 03/27/24 09:56 [facility] [id number]) Cervical Spine Strength Cervical Spine Manual Muscle Testing Testing Position Sitting Flexion (C1-2) 4 Good Extension 4 Good Rotation Left 4 Good Rotation Right 4 Good Lateral Flexion Left (C3) 4 Good Lateral Flexion Right (C3) 4 Good Trunk Strength Trunk Manual Muscle Testing Flexion 4- Good- Extension 4- Good- Core Stabilization poor Shoulder Strength Shoulder Manual Muscle Testing silke Flexion 4+ Good+ Extension 4+ Good+ Abduction (C5) 4 Good External Rotation 4- Good- Internal Rotation 4 Good Elbow/Forearm Strength Elbow and Forearm Manual Muscle Testing silke Flexion (C6) 4+ Good+ Extension (C7) 4+ Good+ PT-OP-Q Treatments Start: 03/18/24 11:02 Freq: Status: Active Protocol: Document 03/26/24 16:44 [facility] (Rec: 03/26/24 17:08 [facility] [id number]) Self-Care/Home Management Treatment Education Patient Education Body Mechanics,Home Exercise Program Other Education issued written handout initial transfer training technique to assist PT-OP-T Assessment and Plan Start: 03/18/24 11:02 Freq: Status: Active Protocol: Document 03/26/24 16:44 [facility] (Rec: 03/26/24 17:08 [facility] [id number]) Physical Therapy Assessment Rehab Potential Rehabilitation Potential Good Evaluation Complexity Number of Personal Factors/Comorbidities 1-2 Number of Body Systems Impaired 3 Clinical Presentation at Evaluation Evolving Other Concerns Barriers to Rehabilitation osteopenia Goals Four Impairment poor knowledge of body mechanics Short Term Goal (STG) Patient to be instructed in proper body mechanics for spinal protection including techniques for safely assisting her with transfers STG Duration 04/25/24 Detention Goal (LTG) Patient will demonstrate good understanding of proper body mechanics and will be able to verbalize and demonstrate to PT without cues LTG Duration 05/26/24 Three Impairment lacking HEP for core strengthening and presents with postural dysfunction Short Term Goal (STG) Patient to be instructed in HEP for purposes of core strengthening and postural correction STG Duration 04/25/24 Correctional Supervisor Lieutenant Goal (LTG) Patient will be independent and compliant with HEP and demonstrate good postural awareness and correction exercises and stragegies LTG Duration 05/26/24 Two Impairment Oswestry disability index score 26% Detention Goal (LTG) Improve score to no greater than 13% LTG Duration 05/26/24 One Impairment neck disability index score 24 % Correctional Supervisor Lieutenant Goal (LTG) Improve score to no greater than 12% LTG Duration 05/26/24 Assessment Summary Assessment Patient presents to PT with function-limiting spinal pain, weakness in spinal and core musculature, and knowledge deficit regarding body mechanics and spinal protection. 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 Demonstration of her current technique for assisting unsafe for her spine and initial education initiated today. Feel she would benefit from PT for strengthening of her core, body mechanics education and training. Modalities and manual therapy PRN pain. POC was discussed and patient was in agreement. Physical Therapy Plan Frequency and Duration Frequency of Treatment 2x/Week Duration of treatment (weeks) 8 Plan of Care Start Date 03/26/24 Plan of Care End Date 05/26/23 Therapeutic Interventions Therapeutic Interventions Home Exercise Program,Manual Therapy,Neuromuscular Re- education,Patient/Caregiver Education,Self-Care/Home Management,Soft Tissue Mobilization,Taping, Therapeutic Activities, Therapeutic Exercises Modalities Cold Pack/Ice Massage,Electric Stimulation,Hot Packs, Ultrasound Next Visit Focus/Plan Next Note Type Treatment Note Next Visit Plan Review HEP, body mechanics handouts. Progress ther ex as tolerated with emphasis on core stabilization and strengthening, continue body mechanics education. Provide updated handouts as needed.
--- NOTE | 2024-04-02 10:38 | PT.OTN ---
Current Diagnoses Cervicalgia (04/02/24) Dorsalgia, unspecified (04/02/24) Other specified disorders of bone density and structure, multiple sites (04/02/24) Physical Therapy Treatment Note PT-OP-A Visit Information Start: 03/18/24 11:02 Freq: Status: Active Protocol: Document 04/02/24 09:50 SAK (Rec: 04/02/24 10:38 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 He uses a wheelchair and has poles to assist with transfers . As he needs more assistance she is worried about hurting herself. States she feels she needs to get stronger and learn how to lift and assist appropriately. Reports her current exercise consists of walking, doing stairs and some UE weights. Prior Treatments and Tests Dexa shows osteopenia Treatment Goals Patient/Caregiver Goals Improve strength, learn techniques to protect her spine while caring for her Prior Functional Status Baseline Function- ADL's Independent Baseline Function- Mobility Independent Baseline Function- Gait indep Current Functional Impairments (Reported) Functional Limitations- ADL's painful Functional Limitations- Work/School painful caregiving for her . PT-OP-C Subjective Start: 03/18/24 11:02 Freq: Status: Active Protocol: Document 04/02/24 09:50 SAK (Rec: 04/02/24 10:38 SAK [id number]) OP-PT Subjective Patient Comments Patient Comments No pain. Has questions about how to sit at her desk, if uses pillow where to put it. Also wants help with transfers and what movements not to do. Reports PT recommendations for transfer safety helpful but needs more in different situations. PT-OP-G Mobility & Gait Start: 03/18/24 11:02 Freq: Status: Active Protocol: Document 03/26/24 16:44 SAK (Rec: 03/27/24 09:58 [facility] [id number]) OP Gait Assessment Gait Gait Assistance Required: Independent Assistive Devices Assistive Device None Gait Deviations General Gait Pattern Within Normal Limits PT-OP-H Neuro Start: 03/18/24 11:02 Freq: Status: Active Protocol: Document 03/26/24 16:44 SAK (Rec: 03/27/24 09:57 [facility] [id number]) Sensation Evaluation Gross Sensation Gross Sensation WNL PT-OP-J Posture/Palpation/Skin Start: 03/18/24 11:02 Freq: Status: Active Protocol: Document 03/26/24 16:44 SAK (Rec: 03/27/24 09:56 [facility] [id number]) Posture Evaluation Position Standing Head/C-Spine Posture Forward Head T-Spine Posture Increased Kyphosis L-Spine Posture Increased Lordosis Shoulder Posture (L) Rounded,(R) Rounded Arm Posture (L) Internally Rotated,(R) Internally Rotated Pelvis Posture Anteriorly Tilted PT-OP-K Range of Motion Start: 03/18/24 11:02 Freq: Status: Active Protocol: Document 03/26/24 16:44 SAK (Rec: 03/27/24 09:56 [facility] [id number]) Cervical Spine Range of Motion Cervical Spine Active Testing Position Sitting ROM Limitations Soft Tissue Tightness,Bony Restriction Comments mod decrease all motions, reports stiffness Lumbar Spine Range of Motion Lumbar Spine Active ROM Limitations Soft Tissue Tightness,Bony Restriction Comments mod decrease all motions, reports stiffness Shoulder Goniometric Range of Motion Shoulder silke Shoulder ROM WFL Yes Hip Goniometric Range of Motion Hip silke Hip ROM WFL No Comments mod decrease all motions, stiffness reported PT-OP-M Strength Start: 03/18/24 11:02 Freq: Status: Active Protocol: Document 03/26/24 16:44 [facility] (Rec: 03/27/24 09:56 [facility] [id number]) Cervical Spine Strength Cervical Spine Manual Muscle Testing Testing Position Sitting Flexion (C1-2) 4 Good Extension 4 Good Rotation Left 4 Good Rotation Right 4 Good Lateral Flexion Left (C3) 4 Good Lateral Flexion Right (C3) 4 Good Trunk Strength Trunk Manual Muscle Testing Flexion 4- Good- Extension 4- Good- Core Stabilization poor Shoulder Strength Shoulder Manual Muscle Testing silke Flexion 4+ Good+ Extension 4+ Good+ Abduction (C5) 4 Good External Rotation 4- Good- Internal Rotation 4 Good Elbow/Forearm Strength Elbow and Forearm Manual Muscle Testing silke Flexion (C6) 4+ Good+ Extension (C7) 4+ Good+ PT-OP-Q Treatments Start: 03/18/24 11:02 Freq: Status: Active Protocol: Document 04/02/24 09:50 [facility] (Rec: 04/02/24 10:38 [facility] [id number]) Therapeutic Exercises Standing Exercises weight shift Standing Exercise Name transfer sim staggered feet weight shift Resistance L2 TB tied 26 high Reps/Minutes 10x2 Comments cues for keeping knees bent, no arm movement, core stab Paleoff press Reps/Minutes 10x Comments silke isometric core step outs Resistance L1 Reps/Minutes 10x5 Comments silke wall posture Reps/Minutes 2 min Comments cues for ribcage centered over pelvis Therapeutic Activity Therapeutic Activity transfers Name w/c to and from mat Reps/Minutes 30 min Comments simulate transferring in the home and at medical appointments. Ed set up using w/c, remove armrest, have scoot forward, turn slightly, ed for weight shift vs lift PT-OP-T Assessment and Plan Start: 03/18/24 11:02 Freq: Status: Active Protocol: Document 04/02/24 09:50 [facility] (Rec: 04/02/24 10:38 [facility] [id number]) Physical Therapy Assessment Goals Four Impairment poor knowledge of body mechanics Short Term Goal (STG) Patient to be instructed in proper body mechanics for spinal protection including techniques for safely assisting her with transfers STG Duration 04/25/24 Retirement Goal (LTG) Patient will demonstrate good understanding of proper body mechanics and will be able to verbalize and demonstrate to PT without cues LTG Duration 05/26/24 Three Impairment lacking HEP for core strengthening and presents with postural dysfunction Short Term Goal (STG) Patient to be instructed in HEP for purposes of core strengthening and postural correction STG Duration 04/25/24 Rodeo Performer Goal (LTG) Patient will be independent and compliant with HEP and demonstrate good postural awareness and correction exercises and stragegies LTG Duration 05/26/24 Two Impairment Oswestry disability index score 26% Rodeo Performer Goal (LTG) Improve score to no greater than 13% LTG Duration 05/26/24 One Impairment neck disability index score 24 % Rodeo Performer Goal (LTG) Improve score to no greater than 12% LTG Duration 1/26/25 Assessment Summary Assessment Patient demonstrating improving understanding of set up and performance of safe transfer of including removal of armrest, having him scoot forward, turn slightly and pt. use weight shift vs lift to perform transfer. Will need further practice and ed. Physical Therapy Plan Frequency and Duration Frequency of Treatment 2x/Week Duration of treatment (weeks) 8 Plan of Care Start Date 03/26/24 Plan of Care End Date 05/26/23 Therapeutic Interventions Therapeutic Interventions Home Exercise Program,Manual Therapy,Neuromuscular Re- education,Patient/Caregiver Education,Self-Care/Home Management,Soft Tissue Mobilization,Taping, Therapeutic Activities, Therapeutic Exercises Modalities Cold Pack/Ice Massage,Electric Stimulation,Hot Packs, Ultrasound Next Visit Focus/Plan Next Note Type Treatment Note Next Visit Plan Continue to work on posture, body mechanics, set up and performance of safe transfers.
--- NOTE | 2024-04-04 16:08 | PT.OTN ---
Current Diagnoses Cervicalgia (04/04/24) Dorsalgia, unspecified (04/04/24) Other specified disorders of bone density and structure, multiple sites (04/04/24) Physical Therapy Treatment Note PT-OP-A Visit Information Start: 03/18/24 11:02 Freq: Status: Active Protocol: Document 04/04/24 08:05 AB (Rec: 04/04/24 16:07 AB [id number]) Out-Patient Physical Therapy Visit Information Visit Information Visit Type Treatment Note Visit Note Access Code: [email or web address] Visit Start Time 08:16 Visit Stop Time 09:02 Visit Number 3 Number of REQUISITION APPROVER Visits 1 Evaluation Information Evaluation Date 03/26/24 Precautions Precautions Osteopenia (~2010) Diverticular disease (~2001) Polymyalgia rheumatica (~2011) Hearing loss Vision disorder Mumps Measles Chicken pox Colon polyps (~2014) PT-OP-B Current Condition Start: 03/18/24 11:02 Freq: Status: Active Protocol: Document 03/26/24 16:44 SAK (Rec: 03/26/24 17:08 SAK [id number]) Current Condition History of Current Condition Onset Date 2 years Current Complaints spinal pain, weakness History of Current Condition Patient reports pain in her neck, thoracic, and lumbar spines with concern about worsening due to 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 He uses a wheelchair and has poles to assist with transfers . As he needs more assistance she is worried about hurting herself. States she feels she needs to get stronger and learn how to lift and assist appropriately. Reports her current exercise consists of walking, doing stairs and some UE weights. Prior Treatments and Tests Dexa shows osteopenia Treatment Goals Patient/Caregiver Goals Improve strength, learn techniques to protect her spine while caring for her Prior Functional Status Baseline Function- ADL's Independent Baseline Function- Mobility Independent Baseline Function- Gait indep Current Functional Impairments (Reported) Functional Limitations- ADL's painful Functional Limitations- Work/School painful caregiving for her . PT-OP-C Subjective Start: 03/18/24 11:02 Freq: Status: Active Protocol: Document 04/04/24 08:05 AB (Rec: 04/04/24 16:07 AB [id number]) OP-PT Subjective Patient Comments Patient Comments Patient reports she is the same. Patient reports the arm does not remove from transport chair and transfer in medical offices continues to be difficulty. Patient reports spouse can walk with walker, but gettng him up from a chair is difficult. PT-OP-G Mobility & Gait Start: 03/18/24 11:02 Freq: Status: Active Protocol: Document 03/26/24 16:44 [facility] (Rec: 03/27/24 09:58 [facility] [id number]) OP Gait Assessment Gait Gait Assistance Required: Independent Assistive Devices Assistive Device None Gait Deviations General Gait Pattern Within Normal Limits PT-OP-H Neuro Start: 03/18/24 11:02 Freq: Status: Active Protocol: Document 03/26/24 16:44 [facility] (Rec: 03/27/24 09:57 [facility] [id number]) Sensation Evaluation Gross Sensation Gross Sensation WNL PT-OP-J Posture/Palpation/Skin Start: 03/18/24 11:02 Freq: Status: Active Protocol: Document 03/26/24 16:44 [facility] (Rec: 03/27/24 09:56 [facility] [id number]) Posture Evaluation Position Standing Head/C-Spine Posture Forward Head T-Spine Posture Increased Kyphosis L-Spine Posture Increased Lordosis Shoulder Posture (L) Rounded,(R) Rounded Arm Posture (L) Internally Rotated,(R) Internally Rotated Pelvis Posture Anteriorly Tilted PT-OP-K Range of Motion Start: 03/18/24 11:02 Freq: Status: Active Protocol: Document 03/26/24 16:44 [facility] (Rec: 03/27/24 09:56 [facility] [id number]) Cervical Spine Range of Motion Cervical Spine Active Testing Position Sitting ROM Limitations Soft Tissue Tightness,Bony Restriction Comments mod decrease all motions, reports stiffness Lumbar Spine Range of Motion Lumbar Spine Active ROM Limitations Soft Tissue Tightness,Bony Restriction Comments mod decrease all motions, reports stiffness Shoulder Goniometric Range of Motion Shoulder silke Shoulder ROM WFL Yes Hip Goniometric Range of Motion Hip silke Hip ROM WFL No Comments mod decrease all motions, stiffness reported PT-OP-M Strength Start: 03/18/24 11:02 Freq: Status: Active Protocol: Document 03/26/24 16:44 [facility] (Rec: 03/27/24 09:56 [facility] [id number]) Cervical Spine Strength Cervical Spine Manual Muscle Testing Testing Position Sitting Flexion (C1-2) 4 Good Extension 4 Good Rotation Left 4 Good Rotation Right 4 Good Lateral Flexion Left (C3) 4 Good Lateral Flexion Right (C3) 4 Good Trunk Strength Trunk Manual Muscle Testing Flexion 4- Good- Extension 4- Good- Core Stabilization poor Shoulder Strength Shoulder Manual Muscle Testing silke Flexion 4+ Good+ Extension 4+ Good+ Abduction (C5) 4 Good External Rotation 4- Good- Internal Rotation 4 Good Elbow/Forearm Strength Elbow and Forearm Manual Muscle Testing silke Flexion (C6) 4+ Good+ Extension (C7) 4+ Good+ PT-OP-Q Treatments Start: 03/18/24 11:02 Freq: Status: Active Protocol: Document 04/04/24 08:05 AB (Rec: 04/04/24 16:07 AB [id number]) Therapeutic Exercises Standing Exercises sit to stand with band Side bilateral Resistance level 2 band Equipment Used HEP Reps/Minutes X10 Comments verbal and visual cues, monitored for pain Therapeutic Activity Therapeutic Activity transfers Name sit to stand and chair to mat Reps/Minutes 39 min Comments Pt ed mech of sit to stand, ( with spine model/use of self tactile cues )pivot transfers, sit to stand transfer, multiple trials with patient behing transfered and performing transfers. Pt ed leading foot fwd, transferring to lower height when able is less difficult, cushion in transport chair and chair with removable arm for appts/ pivots transfer. sit to stand lunge position, using body to assist with fwd trunk lean . PT-OP-T Assessment and Plan Start: 03/18/24 11:02 Freq: Status: Active Protocol: Document 04/04/24 08:05 AB (Rec: 04/04/24 16:07 AB [id number]) Physical Therapy Assessment Goals Four Impairment poor knowledge of body mechanics Short Term Goal (STG) Patient to be instructed in proper body mechanics for spinal protection including techniques for safely assisting her with transfers STG Duration 04/25/24 Artificial Teeth Inspector Goal (LTG) Patient will demonstrate good understanding of proper body mechanics and will be able to verbalize and demonstrate to PT without cues LTG Duration 05/26/24 Three Impairment lacking HEP for core strengthening and presents with postural dysfunction Short Term Goal (STG) Patient to be instructed in HEP for purposes of core strengthening and postural correction STG Duration 04/25/24 Custodial Goal (LTG) Patient will be independent and compliant with HEP and demonstrate good postural awareness and correction exercises and stragegies LTG Duration 05/26/24 Two Impairment Oswestry disability index score 26% Custodial Goal (LTG) Improve score to no greater than 13% LTG Duration 05/26/24 One Impairment neck disability index score 24 % Custodial Goal (LTG) Improve score to no greater than 12% LTG Duration 05/26/24 Assessment Summary Assessment Patient reports having no pain end of session. Patient able to perform with good technique / use of cantilever, but less force than required for transfers in home.4:06 pm phoned patient left message HEP for sit to stand with band is 3X10, but she is to only perform one set of 10 daily, also left phone number and extension if she has any questions. Physical Therapy Plan Frequency and Duration Frequency of Treatment 2x/Week Duration of treatment (weeks) 8 Plan of Care Start Date 03/26/24 Plan of Care End Date 05/26/23 Next Visit Focus/Plan Next Note Type Treatment Note Next Visit Plan Continue to work on posture, body mechanics, set up and performance of safe transfers.
--- NOTE | 2024-04-09 10:42 | PT.OTN ---
Current Diagnoses Cervicalgia (04/09/24) Dorsalgia, unspecified (04/09/24) Other specified disorders of bone density and structure, multiple sites (04/09/24) Physical Therapy Treatment Note PT-OP-A Visit Information Start: 03/18/24 11:02 Freq: Status: Active Protocol: Document 04/09/24 09:46 SAK (Rec: 04/09/24 10:42 [facility] [id number]) Out-Patient Physical Therapy Visit Information Visit Information Visit Type Treatment Note Visit Start Time 09:45 Visit Stop Time 10:30 Visit Number 4 Number of CAPPER MACHINE OPERATOR Visits 0 Evaluation Information Evaluation Date 03/26/24 Precautions Precautions Osteopenia (~2010) Diverticular disease (~2001) Polymyalgia rheumatica (~2011) Hearing loss Vision disorder Mumps Measles Chicken pox Colon polyps (~2014) PT-OP-B Current Condition Start: 03/18/24 11:02 Freq: Status: Active Protocol: Document 03/26/24 16:44 SAK (Rec: 03/26/24 17:08 [facility] [id number]) Current Condition History of Current Condition Onset Date 2 years Current Complaints spinal pain, weakness History of Current Condition Patient reports pain in her neck, thoracic, and lumbar spines with concern about worsening due to 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 He uses a wheelchair and has poles to assist with transfers . As he needs more assistance she is worried about hurting herself. States she feels she needs to get stronger and learn how to lift and assist appropriately. Reports her current exercise consists of walking, doing stairs and some UE weights. Prior Treatments and Tests Dexa shows osteopenia Treatment Goals Patient/Caregiver Goals Improve strength, learn techniques to protect her spine while caring for her Prior Functional Status Baseline Function- ADL's Independent Baseline Function- Mobility Independent Baseline Function- Gait indep Current Functional Impairments (Reported) Functional Limitations- ADL's painful Functional Limitations- Work/School painful caregiving for her . PT-OP-C Subjective Start: 03/18/24 11:02 Freq: Status: Active Protocol: Document 04/09/24 09:46 SAK (Rec: 04/09/24 10:42 [facility] [id number]) OP-PT Subjective Patient Comments Patient Comments Patient brings her to PT to work on specific challenges she has transferring him. Has a transport chair with removable armrests on order. REports much difficulty with helping him sit to stand to be able to do daily walking as recommended by his physician PT-OP-G Mobility & Gait Start: 03/18/24 11:02 Freq: Status: Active Protocol: Document 03/26/24 16:44 SAK (Rec: 03/27/24 09:58 [facility] [id number]) OP Gait Assessment Gait Gait Assistance Required: Independent Assistive Devices Assistive Device None Gait Deviations General Gait Pattern Within Normal Limits PT-OP-H Neuro Start: 03/18/24 11:02 Freq: Status: Active Protocol: Document 03/26/24 16:44 SAK (Rec: 03/27/24 09:57 [facility] [id number]) Sensation Evaluation Gross Sensation Gross Sensation WNL PT-OP-J Posture/Palpation/Skin Start: 03/18/24 11:02 Freq: Status: Active Protocol: Document 03/26/24 16:44 [facility] (Rec: 03/27/24 09:56 [facility] [id number]) Posture Evaluation Position Standing Head/C-Spine Posture Forward Head T-Spine Posture Increased Kyphosis L-Spine Posture Increased Lordosis Shoulder Posture (L) Rounded,(R) Rounded Arm Posture (L) Internally Rotated,(R) Internally Rotated Pelvis Posture Anteriorly Tilted PT-OP-K Range of Motion Start: 03/18/24 11:02 Freq: Status: Active Protocol: Document 03/26/24 16:44 [facility] (Rec: 03/27/24 09:56 [facility] [id number]) Cervical Spine Range of Motion Cervical Spine Active Testing Position Sitting ROM Limitations Soft Tissue Tightness,Bony Restriction Comments mod decrease all motions, reports stiffness Lumbar Spine Range of Motion Lumbar Spine Active ROM Limitations Soft Tissue Tightness,Bony Restriction Comments mod decrease all motions, reports stiffness Shoulder Goniometric Range of Motion Shoulder silke Shoulder ROM WFL Yes Hip Goniometric Range of Motion Hip silke Hip ROM WFL No Comments mod decrease all motions, stiffness reported PT-OP-M Strength Start: 03/18/24 11:02 Freq: Status: Active Protocol: Document 03/26/24 16:44 [facility] (Rec: 03/27/24 09:56 [facility] [id number]) Cervical Spine Strength Cervical Spine Manual Muscle Testing Testing Position Sitting Flexion (C1-2) 4 Good Extension 4 Good Rotation Left 4 Good Rotation Right 4 Good Lateral Flexion Left (C3) 4 Good Lateral Flexion Right (C3) 4 Good Trunk Strength Trunk Manual Muscle Testing Flexion 4- Good- Extension 4- Good- Core Stabilization poor Shoulder Strength Shoulder Manual Muscle Testing silke Flexion 4+ Good+ Extension 4+ Good+ Abduction (C5) 4 Good External Rotation 4- Good- Internal Rotation 4 Good Elbow/Forearm Strength Elbow and Forearm Manual Muscle Testing silke Flexion (C6) 4+ Good+ Extension (C7) 4+ Good+ PT-OP-Q Treatments Start: 03/18/24 11:02 Freq: Status: Active Protocol: Document 04/09/24 09:46 [facility] (Rec: 04/09/24 10:42 [facility] [id number]) Therapeutic Activity Therapeutic Activity transfers Name sit to stand and transport chair to and from mat transfers Reps/Minutes 40 min Comments Patient instructed in need for higher surfaces, obtain thick cushion for patient to sit on , possible taller w/c and transport chair as well as a lift chair due to patient height (6'3 originally, long legs) for better mechanical advantage and safety with transfers.Practiced sit to stand transfer from transport chair initially with their standard set up as well as with 2 pillows added. Stressed/reviewed importance of set up as patient with tendency toward both legs to right (windswept look) and feet together; stressed neutral legs, feet shoulder width, and reviewed importance of having her scoot forward and turn feet and body so doesn't have to take steps with transfer to another surface, or have eutral with sit to stand. Also reviewed need for her to lean forward (nose over toes) with transfers to improve ease. Emphsized need for patient to weight shift during transfer instead of just lift up. Self-Care/Home Management Treatment Education Other Education ed benefits of lift chair, higher w/c and sitting surfaces PT-OP-T Assessment and Plan Start: 03/18/24 11:02 Freq: Status: Active Protocol: Document 04/09/24 09:46 [facility] (Rec: 04/09/24 10:42 [facility] [id number]) Physical Therapy Assessment Goals Four Impairment poor knowledge of body mechanics Short Term Goal (STG) Patient to be instructed in proper body mechanics for spinal protection including techniques for safely assisting her with transfers STG Duration 04/25/[address] Foreman Goal (LTG) Patient will demonstrate good understanding of proper body mechanics and will be able to verbalize and demonstrate to PT without cues LTG Duration 05/26/24 Three Impairment lacking HEP for core strengthening and presents with postural dysfunction Short Term Goal (STG) Patient to be instructed in HEP for purposes of core strengthening and postural correction STG Duration 04/25/[address] Goal (LTG) Patient will be independent and compliant with HEP and demonstrate good postural awareness and correction exercises and stragegies LTG Duration 05/26/24 Two Impairment Oswestry disability index score 26% Custodial Goal (LTG) Improve score to no greater than 13% LTG Duration 05/26/24 One Impairment neck disability index score 24 % Custodial Goal (LTG) Improve score to no greater than 12% LTG Duration 05/26/24 Assessment Summary Assessment As above treatment consisted of patient ed and ther act regarding patient ability to safely transfer her with present. His height and leg length is large factor as he is sitting with knees higher than hips making transfers more difficult. Made recommendations for lift chair (not to use lift mechanism all the time, but to improve patient safety and be able to work on transfering her with different heights and improve patient safety if her not doing well has option to raise chair for improved mechanical advantage. Has transport chair with removable armrests on order as recommended also. Patient demonstrating improving understanding. May benefit from futher written materials and/or video for reference at home regarding safe transfers. Physical Therapy Plan Frequency and Duration Frequency of Treatment 2x/Week Duration of treatment (weeks) 8 Plan of Care Start Date 03/26/24 Plan of Care End Date 05/26/23 Therapeutic Interventions Therapeutic Interventions Home Exercise Program,Manual Therapy,Neuromuscular Re- education,Patient/Caregiver Education,Self-Care/Home Management,Soft Tissue Mobilization,Taping, Therapeutic Activities, Therapeutic Exercises Modalities Cold Pack/Ice Massage,Electric Stimulation,Hot Packs, Ultrasound Next Visit Focus/Plan Next Note Type Treatment Note Next Visit Plan Update patient home program by possibly adding written and/ or video info for reference safe transfers as a caregiver.
--- NOTE | 2024-04-16 10:09 | PT.OTN ---
Current Diagnoses Cervicalgia (04/16/24) Dorsalgia, unspecified (04/16/24) Other specified disorders of bone density and structure, multiple sites (04/16/24) Physical Therapy Treatment Note PT-OP-A Visit Information Start: 03/18/24 11:02 Freq: Status: Active Protocol: Document 04/16/24 08:08 AB (Rec: 04/16/24 10:09 AB [id number]) Out-Patient Physical Therapy Visit Information Visit Information Visit Type Treatment Note Visit Note Access Code: [email or web address] Visit Start Time 09:04 Visit Stop Time 09:47 Visit Number 5 Number of CHIEF INFORMATION OFFICER Visits 1 Evaluation Information Evaluation Date 03/26/24 Precautions Precautions Osteopenia (~2010) Diverticular disease (~2001) Polymyalgia rheumatica (~2011) Hearing loss Vision disorder Mumps Measles Chicken pox Colon polyps (~2014) PT-OP-B Current Condition Start: 03/18/24 11:02 Freq: Status: Active Protocol: Document 03/26/24 16:44 SAK (Rec: 03/26/24 17:08 SAK [id number]) Current Condition History of Current Condition Onset Date 2 years Current Complaints spinal pain, weakness History of Current Condition Patient reports pain in her neck, thoracic, and lumbar spines with concern about worsening due to 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 He uses a wheelchair and has poles to assist with transfers . As he needs more assistance she is worried about hurting herself. States she feels she needs to get stronger and learn how to lift and assist appropriately. Reports her current exercise consists of walking, doing stairs and some UE weights. Prior Treatments and Tests Dexa shows osteopenia Treatment Goals Patient/Caregiver Goals Improve strength, learn techniques to protect her spine while caring for her Prior Functional Status Baseline Function- ADL's Independent Baseline Function- Mobility Independent Baseline Function- Gait indep Current Functional Impairments (Reported) Functional Limitations- ADL's painful Functional Limitations- Work/School painful caregiving for her . PT-OP-C Subjective Start: 03/18/24 11:02 Freq: Status: Active Protocol: Document 04/16/24 08:08 AB (Rec: 04/16/24 10:09 AB [id number]) OP-PT Subjective Patient Comments Patient Comments Khris reports she has not had to lift her spouse due to patient getting a lift chair. Patient's spouse is returning to PT with [facility], and transport chair with arm removing is ordered. Patient reports having no pain right now. Infra costal angle 129 deg, L CS rotation< right AROM seated. Patient requests advice for sleeping with less pain/neck. PT-OP-G Mobility & Gait Start: 03/18/24 11:02 Freq: Status: Active Protocol: Document 03/26/24 16:44 SAK (Rec: 03/27/24 09:58 [facility] [id number]) OP Gait Assessment Gait Gait Assistance Required: Independent Assistive Devices Assistive Device None Gait Deviations General Gait Pattern Within Normal Limits PT-OP-H Neuro Start: 03/18/24 11:02 Freq: Status: Active Protocol: Document 03/26/24 16:44 SAK (Rec: 03/27/24 09:57 [facility] [id number]) Sensation Evaluation Gross Sensation Gross Sensation WNL PT-OP-J Posture/Palpation/Skin Start: 03/18/24 11:02 Freq: Status: Active Protocol: Document 03/26/24 16:44 SAK (Rec: 03/27/24 09:56 [facility] [id number]) Posture Evaluation Position Standing Head/C-Spine Posture Forward Head T-Spine Posture Increased Kyphosis L-Spine Posture Increased Lordosis Shoulder Posture (L) Rounded,(R) Rounded Arm Posture (L) Internally Rotated,(R) Internally Rotated Pelvis Posture Anteriorly Tilted PT-OP-K Range of Motion Start: 03/18/24 11:02 Freq: Status: Active Protocol: Document 03/26/24 16:44 SAK (Rec: 03/27/24 09:56 [facility] [id number]) Cervical Spine Range of Motion Cervical Spine Active Testing Position Sitting ROM Limitations Soft Tissue Tightness,Bony Restriction Comments mod decrease all motions, reports stiffness Lumbar Spine Range of Motion Lumbar Spine Active ROM Limitations Soft Tissue Tightness,Bony Restriction Comments mod decrease all motions, reports stiffness Shoulder Goniometric Range of Motion Shoulder silke Shoulder ROM WFL Yes Hip Goniometric Range of Motion Hip islke Hip ROM WFL No Comments mod decrease all motions, stiffness reported PT-OP-M Strength Start: 03/18/24 11:02 Freq: Status: Active Protocol: Document 03/26/24 16:44 SAK (Rec: 03/27/24 09:56 [facility] [id number]) Cervical Spine Strength Cervical Spine Manual Muscle Testing Testing Position Sitting Flexion (C1-2) 4 Good Extension 4 Good Rotation Left 4 Good Rotation Right 4 Good Lateral Flexion Left (C3) 4 Good Lateral Flexion Right (C3) 4 Good Trunk Strength Trunk Manual Muscle Testing Flexion 4- Good- Extension 4- Good- Core Stabilization poor Shoulder Strength Shoulder Manual Muscle Testing silke Flexion 4+ Good+ Extension 4+ Good+ Abduction (C5) 4 Good External Rotation 4- Good- Internal Rotation 4 Good Elbow/Forearm Strength Elbow and Forearm Manual Muscle Testing silke Flexion (C6) 4+ Good+ Extension (C7) 4+ Good+ PT-OP-Q Treatments Start: 03/18/24 11:02 Freq: Status: Active Protocol: Document 04/16/24 08:08 AB (Rec: 04/16/24 10:09 AB [id number]) Therapeutic Exercises Supine Exercises CS rotation Supine Exercise Name on occipital float Side bilateral Reps/Minutes 3 min Comments verbal and tactile cues for breathing from diaphragm Sitting Exercises marching seated on mont[place]gr[place] ball Side bilateral Reps/Minutes X10 each side Comments close supervision, VC to avoid ball mvmt Pallof press on green [place] ball Side bilateral Resistance level one band Reps/Minutes [id number] side Comments supervision, Verbal cues Seated breathing from diaphragm Sitting Exercise Name HEP Reps/Minutes one min Comments verbal and tactile cues Standing Exercises sit to stand with band Standing Exercise Name Holding 1 lb weights Side bilateral Resistance level 3 band Equipment Used HEP Reps/Minutes X10 x2 Comments verbal and visual cues, monitored for pain Paleoff press Resistance level one band Reps/Minutes 15x Comments silke isometric core step outs Resistance L1 Reps/Minutes 10x5 Comments silke Other Exercises CS rotation in quadruped Other Exercise Name HEP Side bilateral Reps/Minutes X10 Comments VC for position, to turn slowly in pain free range Therapeutic Activity Therapeutic Activity floor transfer Name with light UE use trial w/o unsteady Reps/Minutes X3 Comments to practice for quadruped positioning sidelying positionoing Name left side Comments Patient ed rationale of enough pillow to fill the depth of shoulder to ear, and pillow under right UE, additional pillow btw knees PT-OP-T Assessment and Plan Start: 03/18/24 11:02 Freq: Status: Active Protocol: Document 04/16/24 08:08 AB (Rec: 04/16/24 10:09 AB [id number]) Physical Therapy Assessment Goals Four Impairment poor knowledge of body mechanics Short Term Goal (STG) Patient to be instructed in proper body mechanics for spinal protection including techniques for safely assisting her with transfers STG Duration 04/25/24 Fdc Goal (LTG) Patient will demonstrate good understanding of proper body mechanics and will be able to verbalize and demonstrate to PT without cues LTG Duration 05/26/24 Three Impairment lacking HEP for core strengthening and presents with postural dysfunction Short Term Goal (STG) Patient to be instructed in HEP for purposes of core strengthening and postural correction STG Duration 04/25/24 Veterinary Practice Manager Goal (LTG) Patient will be independent and compliant with HEP and demonstrate good postural awareness and correction exercises and stragegies LTG Duration 05/26/24 Two Impairment Oswestry disability index score 26% Fdc Goal (LTG) Improve score to no greater than 13% LTG Duration 05/26/24 One Impairment neck disability index score 24 % Veterinary Practice Manager Goal (LTG) Improve score to no greater than 12% LTG Duration 05/26/24 Assessment Summary Assessment Khris reports having no pain end of session, Transitioning from quadruped steady with light UE use, unsteady without UE use. Physical Therapy Plan Frequency and Duration Frequency of Treatment 2x/Week Duration of treatment (weeks) 8 Plan of Care Start Date 03/26/24 Plan of Care End Date 05/26/23 Next Visit Focus/Plan Next Note Type Treatment Note Next Visit Plan Continue to work on posture, body mechanics, set up and performance of safe transfers
--- NOTE | 2024-05-23 16:29 | PT.OTRE ---
Current Diagnoses Cervicalgia (05/23/24) Dorsalgia, unspecified (05/23/24) Other specified disorders of bone density and structure, multiple sites (05/23/24) Past Medical History (Last Updated 03/08/24 @ 08:55 by Hannah Alegre DO) Chicken pox Colon polyps (~2014) Diverticular disease (~2001) Hearing loss Measles Mumps Osteopenia (~2010) Polymyalgia rheumatica (~2011) Vision disorder Surgical History (Last Updated 08/11/21 @ 20:33 by Virginia Olson) Anesthesia History of rhinoplasty (~1989) Visit Care Team Role Provider Type Hannah Alegre DO Attending Provider Physician Family Provider Primary Care Provider Referring Provider Specialty: Medical Address: [address] [place] [address], [address], [place], [address] Email: [email or web address] Physical Therapy Re-Evaluation PT-OP-A Visit Information Start: 03/18/24 11:02 Freq: Status: Active Protocol: Document 05/23/24 09:47 SAK (Rec: 05/23/24 10:45 SAK [id number]) Out-Patient Physical Therapy Visit Information Visit Information Visit Type Treatment Note Visit Start Time 09:48 Visit Stop Time 10:29 Visit Number 6 Evaluation Information Evaluation Date 03/26/24 Precautions Precautions Osteopenia (~2010) Diverticular disease (~2001) Polymyalgia rheumatica (~2011) Hearing loss Vision disorder Mumps Measles Chicken pox Colon polyps (~2014) PT-OP-B Current Condition Start: 03/18/24 11:02 Freq: Status: Active Protocol: Document 03/26/24 16:44 SAK (Rec: 03/26/24 17:08 SAK [id number]) Current Condition History of Current Condition Onset Date 2 years Current Complaints spinal pain, weakness History of Current Condition Patient reports pain in her neck, thoracic, and lumbar spines with concern about worsening due to 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 He uses a wheelchair and has poles to assist with transfers . As he needs more assistance she is worried about hurting herself. States she feels she needs to get stronger and learn how to lift and assist appropriately. Reports her current exercise consists of walking, doing stairs and some UE weights. Prior Treatments and Tests Dexa shows osteopenia Treatment Goals Patient/Caregiver Goals Improve strength, learn techniques to protect her spine while caring for her Prior Functional Status Baseline Function- ADL's Independent Baseline Function- Mobility Independent Baseline Function- Gait indep Current Functional Impairments (Reported) Functional Limitations- ADL's painful Functional Limitations- Work/School painful caregiving for her . PT-OP-C Subjective Start: 03/18/24 11:02 Freq: Status: Active Protocol: Document 05/23/24 09:47 [facility] (Rec: 05/23/24 10:45 [facility] [id number]) OP-PT Subjective Patient Comments Patient Comments Had a Dexa scan last week, has osteoporesis neck of left femur, rest of femur is osteopenia. Hasn't done ex as much because had flu. Lift chair very helpful for her , she hasn't had to lift him recently, min pain in back or neck PT-OP-G Mobility & Gait Start: 03/18/24 11:02 Freq: Status: Active Protocol: Document 03/26/24 16:44 [facility] (Rec: 03/27/24 09:58 [facility] [id number]) OP Gait Assessment Gait Gait Assistance Required: Independent Assistive Devices Assistive Device None Gait Deviations General Gait Pattern Within Normal Limits PT-OP-H Neuro Start: 03/18/24 11:02 Freq: Status: Active Protocol: Document 03/26/24 16:44 SAK (Rec: 03/27/24 09:57 [facility] [id number]) Sensation Evaluation Gross Sensation Gross Sensation WNL PT-OP-J Posture/Palpation/Skin Start: 03/18/24 11:02 Freq: Status: Active Protocol: Document 03/26/24 16:44 SAK (Rec: 03/27/24 09:56 [facility] [id number]) Posture Evaluation Position Standing Head/C-Spine Posture Forward Head T-Spine Posture Increased Kyphosis L-Spine Posture Increased Lordosis Shoulder Posture (L) Rounded,(R) Rounded Arm Posture (L) Internally Rotated,(R) Internally Rotated Pelvis Posture Anteriorly Tilted PT-OP-K Range of Motion Start: 03/18/24 11:02 Freq: Status: Active Protocol: Document 03/26/24 16:44 SAK (Rec: 03/27/24 09:56 [facility] [id number]) Cervical Spine Range of Motion Cervical Spine Active Testing Position Sitting ROM Limitations Soft Tissue Tightness,Bony Restriction Comments mod decrease all motions, reports stiffness Lumbar Spine Range of Motion Lumbar Spine Active ROM Limitations Soft Tissue Tightness,Bony Restriction Comments mod decrease all motions, reports stiffness Shoulder Goniometric Range of Motion Shoulder Measured in Degrees silke Shoulder ROM WFL Yes Hip Goniometric Range of Motion Hip Measured in Degrees silke Hip ROM WFL No Comments mod decrease all motions, stiffness reported PT-OP-M Strength Start: 03/18/24 11:02 Freq: Status: Active Protocol: Document 03/26/24 16:44 [facility] (Rec: 03/27/24 09:56 [facility] [id number]) Cervical Spine Strength Cervical Spine Manual Muscle Testing Testing Position Sitting Flexion (C1-2) 4 Good Extension 4 Good Rotation Left 4 Good Rotation Right 4 Good Lateral Flexion Left (C3) 4 Good Lateral Flexion Right (C3) 4 Good Trunk Strength Trunk Manual Muscle Testing Flexion 4- Good- Extension 4- Good- Core Stabilization poor Shoulder Strength Shoulder Manual Muscle Testing silke Flexion 4+ Good+ Extension 4+ Good+ Abduction (C5) 4 Good External Rotation 4- Good- Internal Rotation 4 Good Elbow/Forearm Strength Elbow and Forearm Manual Muscle Testing silke Flexion (C6) 4+ Good+ Extension (C7) 4+ Good+ PT-OP-Q Treatments Start: 03/18/24 11:02 Freq: Status: Active Protocol: Document 05/23/24 09:47 [facility] (Rec: 05/23/24 10:45 [facility] [id number]) Cardio Equipment Recumbent Stepper (Sci-Fit) Duration (Minutes) 7 Resistance 1 Seat Position 11 Therapeutic Exercises Standing Exercises lunge Reps/Minutes 5x each side Comments cues for gluteal activation resisted sidestepping Equipment Used L2 TB Reps/Minutes 10 ft x 4 sit to stand with band Standing Exercise Name Holding 1 lb weights Side bilateral Resistance level 3 band Equipment Used HEP Reps/Minutes X10 x2 Comments verbal and visual cues, monitored for pain Paleoff press Resistance level one band Reps/Minutes 15x Comments silke isometric core step outs Resistance L1 Reps/Minutes 10x5 Comments silke Therapeutic Activity Therapeutic Activity floor transfer Name with light UE use trial w/o unsteady Reps/Minutes x1 Comments to practice for quadruped positioning PT-OP-T Assessment and Plan Start: 03/18/24 11:02 Freq: Status: Active Protocol: Document 05/23/24 09:47 [facility] (Rec: 05/23/24 10:45 [facility] [id number]) Physical Therapy Assessment Goals Four Impairment poor knowledge of body mechanics Short Term Goal (STG) Patient to be instructed in proper body mechanics for spinal protection including techniques for safely assisting her with transfers 05/23/24: goal met STG Duration goal met General Accounting Manager Goal (LTG) Patient will demonstrate good understanding of proper body mechanics and will be able to verbalize and demonstrate to PT without cues 05/23/24: improving, still required some cues today. LTG Duration 06/25/27 Three Impairment lacking HEP for core strengthening and presents with postural dysfunction Short Term Goal (STG) Patient to be instructed in HEP for purposes of core strengthening and postural correction 05/23/24: goal met STG Duration goal met General Accounting Manager Goal (LTG) Patient will be independent and compliant with HEP and demonstrate good postural awareness and correction exercises and stragegies 05/23/24: good goal progress, needed further instruction today LTG Duration 06/25/27 Two Impairment Oswestry disability index score 26% General Accounting Manager Goal (LTG) Improve score to no greater than 13% 05/23/24: goal met 8% LTG Duration goal met One Impairment neck disability index score 24 % General Accounting Manager Goal (LTG) Improve score to no greater than 12% 05/23/24: goal met 12% LTG Duration goal met Assessment Summary Assessment Patient had multiple missed appointments due to having the flu, not much chance to do HEP, needed cues today for exercises and body mechanics. Progressed HEP. Recommend follow-up appointment in 3-4 weeks to assess compliance and performance. Progress or modify as indicated. Physical Therapy Plan Frequency and Duration Frequency of Treatment 2x/Week Duration of treatment (weeks) 8 Plan of Care Start Date 05/23/24 Plan of Care End Date 06/28/24 Next Visit Focus/Plan Next Note Type Treatment Note Next Visit Plan follow-up appointment to assess HEP performance, body mechanics with functional activities.
--- NOTE | 2024-05-23 16:29 | PT.OPPOC ---
Physical, Occupational & Speech Therapy At [facility] Current Diagnoses Cervicalgia (05/23/24) Dorsalgia, unspecified (05/23/24) Other specified disorders of bone density and structure, multiple sites (05/23/24) Visit Care Team Role Provider Type Hannah Alegre DO Attending Provider Physician Family Provider Primary Care Provider Referring Provider Specialty: Medical Address: [address] [place] [address], [address], [place], [address] Email: [email or web address] Plan Of Care PT-OP-B Current Condition Start: 03/18/24 11:02 Freq: Status: Active Protocol: Document 03/26/24 16:44 SAK (Rec: 03/26/24 17:08 SAK [id number]) Current Condition History of Current Condition Onset Date 2 years Current Complaints spinal pain, weakness History of Current Condition Patient reports pain in her neck, thoracic, and lumbar spines with concern about worsening due to 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 He uses a wheelchair and has poles to assist with transfers . As he needs more assistance she is worried about hurting herself. States she feels she needs to get stronger and learn how to lift and assist appropriately. Reports her current exercise consists of walking, doing stairs and some UE weights. Prior Treatments and Tests Dexa shows osteopenia Treatment Goals Patient/Caregiver Goals Improve strength, learn techniques to protect her spine while caring for her Prior Functional Status Baseline Function- ADL's Independent Baseline Function- Mobility Independent Baseline Function- Gait indep Current Functional Impairments (Reported) Functional Limitations- ADL's painful Functional Limitations- Work/School painful caregiving for her . PT-OP-T Assessment and Plan Start: 03/18/24 11:02 Freq: Status: Active Protocol: Document 05/23/24 09:47 SAK (Rec: 05/23/24 10:45 SAK [id number]) Physical Therapy Assessment Goals Four Impairment poor knowledge of body mechanics Short Term Goal (STG) Patient to be instructed in proper body mechanics for spinal protection including techniques for safely assisting her with transfers 05/23/24: goal met STG Duration goal met [employer] Sales Representative Goal (LTG) Patient will demonstrate good understanding of proper body mechanics and will be able to verbalize and demonstrate to PT without cues 05/23/24: improving, still required some cues today. LTG Duration 06/25/27 Three Impairment lacking HEP for core strengthening and presents with postural dysfunction Short Term Goal (STG) Patient to be instructed in HEP for purposes of core strengthening and postural correction 05/23/24: goal met STG Duration goal met Retirement Goal (LTG) Patient will be independent and compliant with HEP and demonstrate good postural awareness and correction exercises and stragegies 05/23/24: good goal progress, needed further instruction today LTG Duration 06/25/27 Two Impairment Oswestry disability index score 26% [employer] Sales Representative Goal (LTG) Improve score to no greater than 13% 05/23/24: goal met 8% LTG Duration goal met One Impairment neck disability index score 24 % [employer] Sales Representative Goal (LTG) Improve score to no greater than 12% 05/23/24: goal met 12% LTG Duration goal met Assessment Summary Assessment Patient had multiple missed appointments due to having the flu, not much chance to do HEP, needed cues today for exercises and body mechanics. Progressed HEP. Recommend follow-up appointment in 3-4 weeks to assess compliance and performance. Progress or modify as indicated. Physical Therapy Plan Frequency and Duration Frequency of Treatment 2x/Week Duration of treatment (weeks) 8 Plan of Care Start Date 05/23/24 Plan of Care End Date 06/28/24 Next Visit Focus/Plan Next Note Type Treatment Note Next Visit Plan follow-up appointment to assess HEP performance, body mechanics with functional activities. Plan of Care Dates Plan of Care Start Date 05/23/24 Plan of Care End Date 06/28/24 Electronically Signed by: Marli Ayon, PT 05/23/24 [id number] If you are in agreement with this Plan of Care, please return a signed and dated copy. I have reviewed this Plan of Care and certify that the skilled therapy services above are required to meet the patient?s needs. Physician Signature Date Printed Name and Credentials Clinical Instructor Signature Printed Name and Credentials
--- NOTE | 2024-10-28 09:19 | PT.OPDS ---
Current Diagnoses Cervicalgia (05/23/24) Dorsalgia, unspecified (05/23/24) Other specified disorders of bone density and structure, multiple sites (05/23/24) Visit Care Team Role Provider Type Hannah Alegre DO Attending Provider Physician Family Provider Primary Care Provider Referring Provider Specialty: Medical Address: [address] [place] [address], [address], [place], [address] Email: [email or web address] Visit Number Visit Number 6 Discharge Summary PT-OP-B Current Condition Start: 03/18/24 11:02 Freq: Status: Active Protocol: Document 03/26/24 16:44 SAK (Rec: 03/26/24 17:08 SAK [id number]) Current Condition History of Current Condition Onset Date 2 years Current Complaints spinal pain, weakness History of Current Patient reports pain in her neck, thoracic, and lumbar Condition spines with concern about worsening due to 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 He uses a wheelchair and has poles to assist with transfers. As he needs more assistance she is worried about hurting herself. States she feels she needs to get stronger and learn how to lift and assist appropriately. Reports her current exercise consists of walking, doing stairs and some UE weights. Prior Treatments and Dexa shows osteopenia Tests Treatment Goals Patient/Caregiver Improve strength, learn techniques to protect her spine Goals while caring for her Prior Functional Status Baseline Function- Independent ADL's Baseline Function- Independent Mobility Baseline Function- indep Gait Current Functional Impairments (Reported) Functional painful Limitations- ADL's Functional painful caregiving for her . Limitations- Work/ School PT-OP-C Subjective Start: 03/18/24 11:02 Freq: Status: Active Protocol: Document 05/23/24 09:47 SAK (Rec: 05/23/24 10:45 SAK [id number]) OP-PT Subjective Patient Comments Patient Comments Had a Dexa scan last week, has osteoporesis neck of left femur, rest of femur is osteopenia. Hasn't done ex as much because had flu. Lift chair very helpful for her , she hasn't had to lift him recently, min pain in back or neck PT-OP-G Mobility & Gait Start: 03/18/24 11:02 Freq: Status: Active Protocol: Document 03/26/24 16:44 SAK (Rec: 03/27/24 09:58 [facility] [id number]) OP Gait Assessment Gait Gait Assistance Independent Required: Assistive Devices Assistive Device None Gait Deviations General Gait Pattern Within Normal Limits PT-OP-H Neuro Start: 03/18/24 11:02 Freq: Status: Active Protocol: Document 03/26/24 16:44 SAK (Rec: 03/27/24 09:57 SAK [id number]) Sensation Evaluation Gross Sensation Gross Sensation WNL PT-OP-J Posture/Palpation/Skin Start: 03/18/24 11:02 Freq: Status: Active Protocol: Document 03/26/24 16:44 SAK (Rec: 03/27/24 09:56 SAK [id number]) Posture Evaluation Position Standing Head/C-Spine Posture Forward Head T-Spine Posture Increased Kyphosis L-Spine Posture Increased Lordosis Shoulder Posture (L) Rounded,(R) Rounded Arm Posture (L) Internally Rotated,(R) Internally Rotated Pelvis Posture Anteriorly Tilted PT-OP-K Range of Motion Start: 03/18/24 11:02 Freq: Status: Active Protocol: Document 03/26/24 16:44 SAK (Rec: 03/27/24 09:[address] [facility] [id number]) Cervical Spine Range of Motion Cervical Spine Active Testing Position Sitting ROM Limitations Soft Tissue Tightness,Bony Restriction Comments mod decrease all motions, reports stiffness Lumbar Spine Range of Motion Lumbar Spine Active ROM Limitations Soft Tissue Tightness,Bony Restriction Comments mod decrease all motions, reports stiffness Shoulder Goniometric Range of Motion Shoulder silke Shoulder ROM WFL Yes Hip Goniometric Range of Motion Hip silke Hip ROM WFL No Comments mod decrease all motions, stiffness reported PT-OP-M Strength Start: 03/18/24 11:02 Freq: Status: Active Protocol: Document 03/26/24 16:44 SAK (Rec: 03/27/24 09:[address] [facility] [id number]) Cervical Spine Strength Cervical Spine Manual Muscle Testing Testing Position Sitting Flexion (C1-2) 4 Good Extension 4 Good Rotation Left 4 Good Rotation Right 4 Good Lateral Flexion Left 4 Good (C3) Lateral Flexion 4 Good Right (C3) Trunk Strength Trunk Manual Muscle Testing Flexion 4- Good- Extension 4- Good- Core Stabilization poor Shoulder Strength Shoulder Manual Muscle Testing silke Flexion 4+ Good+ Extension 4+ Good+ Abduction (C5) 4 Good External Rotation 4- Good- Internal Rotation 4 Good Elbow/Forearm Strength Elbow and Forearm Manual Muscle Testing silke Flexion (C6) 4+ Good+ Extension (C7) 4+ Good+ PT-OP-T Assessment and Plan Start: 03/18/24 11:02 Freq: Status: Active Protocol: Document 10/28/24 09:18 [facility] (Rec: 10/28/24 09:19 [facility] Laptop) Physical Therapy Plan Discharge Physical Therapy Discharge Reasons No Longer Attending PT
== END 2024-11-04 10:49 | disposition home or self-care (01) ==
LOC: PHYS 09:45
PROVIDERS: Family Provider Family Medicine; PCP Family Medicine; Referring Provider Family Medicine; Visit Provider Family Medicine
DX: M54.9 Dorsalgia, unspecified (principal); M54.2 Cervicalgia; M85.89 Other specified disorders of bone density and structure, multiple sites
CPT/HCPCS: 97110; 97162; 97530; 97535

== ENCOUNTER → 2024-07-22 14:06 | Outpatient (CLI) | payer MEDICARE, BC, SELFPAY ==
[2024-07-22 14:46] LABS: Add Manual Diff / Slide Review NO; Basophils Absolute Auto 100 /uL (0-100); Basophils Percent Auto 1.1 % (0-2); Eosinophils Absolute Auto 100 /uL (0-450); Eosinophils Percent Auto 1.5 % (2-4); Hematocrit 39.7 % (36-46); Hemoglobin 13.4 g/dL (12.0-16.0); Lymphocytes Absolute Auto 1700 /uL (1100-4500); Lymphocytes Percent Auto 30.7 % (25-40); Mean Corpuscular HGB Conc 33.7 % (30-36); Mean Corpuscular Hemoglobin 31.7 PG (26-34); Mean Corpuscular Volume 93.9 fL (80-100); Monocytes Absolute Auto 400 /uL (0-900); Neutrophils Absolute Auto 3200 /uL (1500-7000); Neutrophils Percent Auto 58.7 % (50-75); Platelet Count 217 X10^3/uL (150-400); Red Blood Cell Count 4.23 X10^6/uL (4.0-5.2); Red Cell Distribution Width 14.3 % (11.6-14.8); White Blood Cell Count 5.5 X10^3/uL (4.5-11.0)
[2024-07-22 15:04] LABS: Alanine Aminotransferase 28 IU/L (<35); Albumin 4.7 g/dL (3.5-5.0); Albumin Globulin Ratio 1.7 (1.0-2.8); Alkaline Phosphatase 71 U/L (38-126); Aspartate Aminotransferase 40 IU/L (14-36); BUN Creatinine Ratio 34.3 (6-22); Bilirubin Total 0.7 mg/dL (0.2-1.3); Blood Urea Nitrogen 23 mg/dL (7-17); Carbon Dioxide 24 mmol/L (22-32); Chloride 104 mmol/L (98-107); Estimated Glomerular Filt Rate > 60 mL/min (>60); Globulin 2.7 g/dL (1.7-4.1); Glucose 90 mg/dL (80-110); HEMOLYSIS < 15 (0-50); Potassium 3.7 mmol/L (3.4-5.1); Sodium 137 mmol/L (137-145); Total Protein 7.4 g/dL (6.3-8.2)
[2024-07-22 15:08] LABS: Rheumatoid Factor < 8.6 IU/mL (<12.0)
[2024-07-22 15:25] LABS: Erythrocyte Sedimentation Rate 16 MM/HR (0-20)
== END ==
PROVIDERS: Family Provider Family Medicine; PCP Family Medicine; Referring Provider Family Medicine; Visit Provider Family Medicine
DX: M85.89 Other specified disorders of bone density and structure, multiple sites (principal); M35.3 Polymyalgia rheumatica; E78.5 Hyperlipidemia, unspecified
CPT/HCPCS: 36415; 80053; 85025; 85651; 86200; 86430

== ENCOUNTER → 2024-08-29 13:46 | Outpatient (CLI) | payer MEDICARE, BC, SELFPAY ==
[2024-08-29 15:24] LABS: Alanine Aminotransferase 23 IU/L (<35); Albumin 4.5 g/dL (3.5-5.0); Alkaline Phosphatase 50 U/L (38-126); Aspartate Aminotransferase 40 IU/L (14-36); BUN Creatinine Ratio 27.5 (6-22); Bilirubin Total 0.7 mg/dL (0.2-1.3); Blood Urea Nitrogen 19 mg/dL (7-17); Carbon Dioxide 26 mmol/L (22-32); Chloride 104 mmol/L (98-107); Estimated Glomerular Filt Rate > 60 mL/min (>60); Globulin 2.2 g/dL (1.7-4.1); Glucose 99 mg/dL (70-99); HEMOLYSIS < 15 (0-50); Potassium 3.7 mmol/L (3.4-5.1); Sodium 139 mmol/L (137-145); Total Protein 6.7 g/dL (6.3-8.2)
[2024-08-29 15:31] LABS: Erythrocyte Sedimentation Rate 10 MM/HR (0-20)
== END ==
PROVIDERS: Family Provider Family Medicine; PCP Family Medicine; Referring Provider Family Medicine; Visit Provider Family Medicine
DX: M35.3 Polymyalgia rheumatica (principal); R74.01 Elevation of levels of liver transaminase levels
CPT/HCPCS: 36415; 80053; 85651

== ENCOUNTER → 2024-11-26 08:36 | Outpatient (CLI) | payer MEDICARE, BC, SELFPAY ==
--- NOTE | 2024-11-26 08:37 | DI.MG.S_ITS ---
MM screening mammo BI: 11/26/2024. BI-RADS: 1 CLINICAL: 79-year old female for bilateral screening mammogram. Tyrer-Cuzick lifetime risk of 3.5%. No personal or first-degree family history of breast cancer. Current reported family history of breast cancer: maternal grandmother. PRIOR EXAMS 11/24/2023, 11/22/2022, 11/16/2021, 11/10/2020. MAMMOGRAPHY TECHNIQUE: 2D and 3D (tomosynthesis) digital mammographic views obtained, with additional images as needed for full coverage. Current study was also evaluated with a Computer Aided Detection (CAD) system. DENSITY C. The breasts are heterogeneously dense, which may obscure small masses. MAMMOGRAPHY FINDINGS Bilateral: No suspicious mass, asymmetry, microcalcification, or other abnormality seen. IMPRESSION: * No evidence of malignancy. RECOMMENDATIONS Bilateral * Annual screening mammography. OVERALL ASSESSMENT CATEGORY BI-RADS-1: Negative. The [employer] recommends annual screening mammography beginning at age 40 for women with average risk of breast cancer. ELECTRONICALLY SIGNED: Mely Guerrero M.D. on 11/26/2024 at 12:42:35 PM PT Interpreting Station ID: [id number]
== END ==
PROVIDERS: Family Provider Family Medicine; PCP Family Medicine; Referring Provider Family Medicine; Visit Provider Family Medicine
DX: Z12.31 Encounter for screening mammogram for malignant neoplasm of breast (principal); Z80.3 Family history of malignant neoplasm of breast; R92.333 Mammographic heterogeneous density, bilateral breasts
CPT/HCPCS: 77063; 77067

== ENCOUNTER → 2025-01-02 06:57 | Outpatient (CLI) | payer MEDICARE, BC, SELFPAY ==
[2025-01-02 07:30] LABS: Hematocrit 39.1 % (36-46); Hemoglobin 13.3 g/dL (12.0-16.0); Mean Corpuscular HGB Conc 33.9 % (30-36); Mean Corpuscular Hemoglobin 31.8 PG (26-34); Mean Corpuscular Volume 93.7 fL (80-100); Platelet Count 190 X10^3/uL (150-400)
[2025-01-02 07:50] LABS: Albumin 4.3 g/dL (3.5-5.0); Alkaline Phosphatase 52 U/L (38-126); Blood Urea Nitrogen 18 mg/dL (7-17); Calcium 9.5 mg/dL (8.4-10.2); Carbon Dioxide 26 mmol/L (22-32); Chloride 107 mmol/L (98-107); Cholesterol 172 mg/dL (140-199); Estimated Glomerular Filt Rate > 60 mL/min (>60); Glucose 88 mg/dL (70-99); HEMOLYSIS < 15 (0-50); Potassium 4.2 mmol/L (3.4-5.1); Sodium 139 mmol/L (137-145); Triglycerides 45 mg/dL (35-150)
[2025-01-02 07:51] LABS: Alanine Aminotransferase 21 IU/L (<35); Albumin Globulin Ratio 2.0 (1.0-2.8); Globulin 2.2 g/dL (1.7-4.1); Total Protein 6.5 g/dL (6.3-8.2)
[2025-01-02 07:59] LABS: HDL Cholesterol 123 mg/dL (40-60)
[2025-01-02 08:06] LABS: Vitamin D 25 Hydroxy (D3) 73.8 ng/mL (30.0-100.0)
[2025-01-03 03:40] LABS: CRP, High Sensitivity 1.43 mg/L (0.00-3.00)
== END ==
PROVIDERS: Family Provider Family Medicine; PCP Family Medicine; Referring Provider Family Medicine; Visit Provider Family Medicine
DX: E78.5 Hyperlipidemia, unspecified (principal); M85.80 Other specified disorders of bone density and structure, unspecified site; M35.3 Polymyalgia rheumatica
CPT/HCPCS: 36415; 80053; 80061; 82306; 85027; 86140